=== PATIENT | female | born 1980 | race Caucasian/White ===

== ENCOUNTER → 2023-07-17 13:43 | Outpatient (REF) | payer BC, SELFPAY ==
[2023-07-17 15:45] LABS: Hematocrit 35.5 % (37.0-47.0); Hemoglobin 11.8 g/dL (12.0-16.0); Mean Corp Hgb Conc. 33.2 g/dL (33.0-37.0); Mean Corpuscular Hgb 28.3 pg (27.0-31.0); Mean Corpuscular Volume 85.1 fL (81.0-99.0); Mean Platelet Volume 11.8 fL (7.4-10.4); Platelet Count 279 10^3/uL (130-400); Red Blood Cell Count 4.17 10^6/uL (4.20-5.40); Red Cell Dist. Width 11.9 % (11.5-14.5); White Blood Cell Count 6.6 10^3/uL (4.8-10.8)
[2023-07-17 16:03] LABS: Iron 45 ug/dl (37-170)
[2023-07-17 16:14] LABS: Percent Saturation 11 % (20-50); Total Iron Binding Capacity 406 ug/dl (265-497)
== END ==
LOC: HWLAB 13:43
PROVIDERS: ATTENDING PHYSICIAN Internal Medicine Gastroenterology; FAMILY PHYSICIAN Family Medicine
DX: R19.7 Diarrhea, unspecified (principal); D50.0 Iron deficiency anemia secondary to blood loss (chronic); K50.012 Crohn's disease of small intestine with intestinal obstruction
CPT/HCPCS: 36415; 83540; 83550; 85027

== ENCOUNTER → 2023-07-21 06:28 | Day surgery (SDC) | payer BC, SELFPAY | LOC: GI 06:28 | PROVIDERS: ATTENDING PHYSICIAN Internal Medicine Gastroenterology | DX: K64.0 First degree hemorrhoids (principal); K63.89 Other specified diseases of intestine; K50.00 Crohn's disease of small intestine without complications; Z09 Encounter for follow-up examination after completed treatment for conditions other than malignant neoplasm | CPT/HCPCS: 45380; 88305 ==

== ENCOUNTER → 2023-08-13 13:51 | Outpatient (REF) | payer BC, SELFPAY | LOC: HWRAD 13:51 | PROVIDERS: ATTENDING PHYSICIAN Family Medicine | DX: R05.1 Acute cough (principal) | CPT/HCPCS: 71046 ==

== ENCOUNTER → 2023-09-10 10:50 | Outpatient (REF) | payer BC, SELFPAY ==
[2023-09-10 16:11] LABS: % Basophils 0.8 % (0-2); % Immature Granulocytes 0.2 % (0-0.5); % Lymphocytes 21.1 % (20.5-51.1); % Monocytes 9.8 % (1.7-9.3); % Neutrophils 67.1 % (42.2-75.2); Absolute Eosinophils 0.1 10^3/uL (0-0.7); Absolute Lymphocytes 1.1 10^3/uL (1.2-3.4); Absolute Monocytes 0.5 10^3/uL (0.1-0.6); Absolute Neutrophils 3.5 10^3/uL (1.4-6.5); Hematocrit 34.6 % (37.0-47.0); Hemoglobin 10.8 g/dL (12.0-16.0); Mean Corp Hgb Conc. 31.2 g/dL (33.0-37.0); Mean Corpuscular Hgb 24.7 pg (27.0-31.0); Mean Platelet Volume 12.7 fL (7.4-10.4); Nucleated Red Blood Cells % 0 %; Platelet Count 240 10^3/uL (130-400); Red Blood Cell Count 4.38 10^6/uL (4.20-5.40); Red Cell Dist. Width 13.1 % (11.5-14.5); White Blood Cell Count 5.2 10^3/uL (4.8-10.8)
[2023-09-10 16:53] LABS: Ferritin 19.4 ng/ml (6.24-137)
== END ==
LOC: HWLAB 10:50
PROVIDERS: ATTENDING PHYSICIAN Internal Medicine Gastroenterology; FAMILY PHYSICIAN Family Medicine
DX: K50.012 Crohn's disease of small intestine with intestinal obstruction (principal); D50.0 Iron deficiency anemia secondary to blood loss (chronic)
CPT/HCPCS: 36415; 82728; 85025

== ENCOUNTER → 2023-09-16 07:45 | Outpatient (REF) | payer BC, SELFPAY | LOC: MRI 3T 07:45 | PROVIDERS: ATTENDING PHYSICIAN Internal Medicine Gastroenterology; FAMILY PHYSICIAN Family Medicine | DX: K50.012 Crohn's disease of small intestine with intestinal obstruction (principal) | CPT/HCPCS: 72197; 74183; A9575 ==

== ENCOUNTER 2023-09-24 06:45 | Inpatient (IN) | payer BC, SELFPAY ==
[2023-09-23 21:53] VITALS: BP 166/98
[2023-09-23] MEDS: ZOFRAN ODT (ORALLY DISINTEGRATING) 4 MG PO (21:58)
[2023-09-23 22:12] LABS: % Basophils 0.5 % (0-2); % Eosinophils 1.2 % (0-6); % Immature Granulocytes 0.2 % (0-0.5); % Neutrophils 75.1 % (42.2-75.2); Absolute Eosinophils 0.1 10^3/uL (0-0.7); Absolute Lymphocytes 1.4 10^3/uL (1.2-3.4); Absolute Monocytes 0.5 10^3/uL (0.1-0.6); Absolute Neutrophils 6.3 10^3/uL (1.4-6.5); Hematocrit 31.6 % (37.0-47.0); Hemoglobin 10.3 g/dL (12.0-16.0); Mean Corp Hgb Conc. 32.6 g/dL (33.0-37.0); Mean Corpuscular Hgb 23.7 pg (27.0-31.0); Mean Corpuscular Volume 72.6 fL (81.0-99.0); Mean Platelet Volume 10.8 fL (7.4-10.4); Nucleated Red Blood Cells % 0 %; Platelet Count 336 10^3/uL (130-400); Red Blood Cell Count 4.35 10^6/uL (4.20-5.40); Red Cell Dist. Width 13.3 % (11.5-14.5); White Blood Cell Count 8.5 10^3/uL (4.8-10.8)
[2023-09-23 22:27] LABS: ALT (SGPT) 24 U/L (0-35); AST (SGOT) 33 U/L (14-36); Albumin 4.1 g/dl (3.5-5.0); Alkaline Phosphatase 82 U/L (38-126); Blood Urea Nitrogen 14 mg/dl (7-17); Calcium 8.5 mg/dl (8.4-10.2); Carbon Dioxide 20 mmol/L (22-30); Chloride 107 mmol/L (98-107); Glucose 99 mg/dl (70-99); Lipase 152 U/L (23-300); Potassium 3.4 mmol/L (3.5-5.1); Sodium 133 mmol/L (135-145); Total Bilirubin 0.4 mg/dl (0.2-1.3); Total Protein 6.9 g/dl (6.3-8.2); eGFR > 60.00
[2023-09-23 23:22] LABS: HCG, Serum Qualitative Screen Negative
--- NOTE | 2023-09-24 00:43 | ED.GENMED ---
History of Present Illness
General
Chief Complaint: Abdominal Pain
Source: patient and previous hospital records (Previous ED visit for similar complaint May 2023. Colonoscopy July 21, 2023. Showing uncomplicated internal hemorrhoids otherwise unremarkable.)
Exam Limitations: none
Time Seen by Provider: 09/24/23 00:01
Nursing documentation reviewed up to this point in time: agreed with
Travel History
Have you had any contact with someone who has COVID-19?: No
Do you have any symptoms of coronavirus? Fever > 100 degrees, chills, cough, shortness of breath, sore throat, loss of taste or smell, muscle aches, or headache?: No
History of Present Illness
History of Present Illness:
This is a 43-year-old woman with history of Crohn's disease chronically maintained on Humira and follows with GI, Dr. Palmer.
She also follows with specialist at [facility] and has undergone MR enteroscopy's showing focal small bowel stricture and has had intermittent flares of Crohn's disease with partial small bowel obstructions most recently May 2023 where
she was evaluated in this ED with very similar complaints of abdominal pain, nausea and vomiting. CT during that visit showed no obstruction nor perforation. She was treated with IV fluids, IV pain medications and antiemetics, IV Decadron and
discharged to home with prescription for prednisone which patient states required several refills/a slow taper with eventual resolution of Crohn's flare.
She has been stable until today when abrupt onset of generalized mid to upper abdominal pain, crampy and severe in nature developed accompanied with nausea and multiple episodes of watery to bilious emesis.
She denies fever nor chills. She did pass a small soft stool earlier today but none since. No hematemesis nor hematochezia.
Current symptoms feel very similar to previous Crohn's flares.
She was given Zofran ODT in triage, thus far no improvement in nausea and vomiting.
Patient states due to segment of stricture in her small bowel noted on MRE, there has been discussion regarding need for small bowel resection.
She has history of anemia and is scheduled for IV iron infusion tomorrow due to recurrent anemia with hemoglobin drifting down to 10.
Past History
Past History
ED Past Medical History: Other (Crohn's disease, B12 and Iron deficiency, migraines, anemia, kidney stones)
ED Past Surgical History: Appendectomy, Bowel resection (Right hemicolectomy at age 12) and Gynecological (D&C 05/2013)
Social History
Tobacco: Non-smoker
Alcohol: None
Personal:
Living: with family
Employment: Employed ([employer]/neu[employer])
Family History
Family History: Other (Noncontributory)
Phy Exam
Physical Exam
Physical Exam:
GENERAL: 43-year-old female appears her stated age, awake and alert, appears in moderate distress related to pain, intermittently retching into emesis bag. is accompanying.
EYE: anicteric
NECK: Supple, nontender, no meningismus, no significant adenopathy.
ENT: oral mucosa is mildly dry. No rhinorrhea.
CARDIAC: Regular rate and rhythm. no murmur.
LUNGS: Clear breath sounds bilaterally, no acute respiratory distress, no wheezes/rales/rhonchi
ABDOMEN: Soft, nondistended, moderate generalized tenderness to the mid to upper abdomen, no r/g, no cvat. Hypoactive bowel sounds.
NEUROLOGICAL: Alert and oriented x3, no focal neuro deficits.
SKIN: Warm and dry, normal color, skin intact. No rash.
MUSCULOSKELETAL: No C/C/E. peripheral pulses are full and equal b/l. No palpable tenderness.
PSYCH: Normal and appropriate interaction.
Course
Orders/Labs/Results
Orders:
Orders
09/23/23 21:57
Ondansetron Orally Disint [Zofran Odt (Orally Disintegrating)] 4 mg .ROUTE .STK-MED ONE
09/23/23 21:58
Ondansetron Orally Disint [Zofran Odt (Orally Disintegrating)] 4 mg PO NOW STA
09/23/23 22:02
Complete Blood Count/With Diff Urgent
Comprehensive Metabolic Panel Urgent
HCG, Serum Qualitative Screen Urgent
Comment: ADD ON
Lipase Urgent
09/23/23 22:54
Add On- LAB Urgent
Comments:: blood in lab
Tests Added?: serum hcg
09/24/23 00:11
0.9% Sodium Chloride 1000 ml [Nss] 1,000 ml IV BOLUS
Diphenhydramine [Benadryl] 25 mg IV NOW STA
HYDROmorphone [Dilaudid] 0.5 mg IV NOW STA
Iohexol [Omnipaque] See Protocol PO NOW STA
Prochlorperazine [Compazine] 10 mg IV NOW STA
09/24/23 00:12
CT Abd/pel W Iv And Oral Contr Urgent
Comment:
Reason For Exam: gen abd pain, N/V, hx crohn's, hx SBO
09/24/23 00:41
Lactic Acid Urgent
09/24/23 02:59
Ondansetron Injectable [Zofran] 4 mg .ROUTE .STK-MED ONE
09/24/23 03:00
Ondansetron Injectable [Zofran] 4 mg IV NOW STA
09/24/23 03:03
HYDROmorphone [Dilaudid] 0.5 mg IV NOW STA
Ondansetron Injectable [Zofran] 4 mg IV NOW STA
09/24/23 03:41
HYDROmorphone [Dilaudid] 0.25 mg .ROUTE .STK-MED ONE
09/24/23 03:43
HYDROmorphone [Dilaudid] 0.25 mg IV NOW STA
Abnormal Lab Results
09/23/23
22:02
Hgb 10.3 L g/dL
(12.0-16.0)
Hct 31.6 L %
(37.0-47.0)
MCV 72.6 L fL
(81.0-99.0)
MCH 23.7 L pg
(27.0-31.0)
MCHC 32.6 L g/dL
(33.0-37.0)
MPV 10.8 H fL
(7.4-10.4)
Lymphocytes % 17.0 L %
(20.5-51.1)
Sodium 133 L mmol/L
(135-145)
Potassium 3.4 L mmol/L
(3.5-5.1)
Carbon Dioxide 20 L mmol/L
(22-30)
09/23/23 22:02
09/23/23 22:02
Vital Signs
Initial and Last Documented VS:
Initial Vital Signs
Temp Pulse Resp BP Pulse Ox
98.2 F 112 16 166/98 99
09/23/23 21:53 09/23/23 21:53 09/23/23 21:53 09/23/23 21:53 09/23/23 21:53
Last Documented Vital Signs
Temp Pulse Resp BP Pulse Ox
98.2 F 67 16 115/72 98
09/23/23 21:53 09/24/23 05:00 09/24/23 05:00 09/24/23 05:00 09/24/23 05:00
MDM/Problems Addressed
Differential Diagnosis Includes:
Concern for Crohn's flare, concern for small bowel obstruction, small bowel perforation, ischemic bowel, dehydration, electrolyte abnormality, progression of anemia.
Will medicate for pain and nausea initiate IV fluids.
Labs thus far show normal white blood cell count, mild anemia with hemoglobin of 10.3, was 10.8 2 weeks ago.
Chemistries show mild hyponatremia, mild hypokalemia with mild metabolic acidosis likely related to fasting state, recurrent vomiting. Normal BUN and creatinine. Normal LFTs and lipase. hCG is negative.
Will check lactic acid.
Will plan for CT abdomen pelvis with oral and IV contrast.
Chronic conditions affecting care: Previous abdomnial surgery and Other (Crohn's disease, anemia)
*Radiology
Radiology exam reviewed: radiology read reviewed
*Pulse Oximetry
Patient hypoxic: no
*Critical Care Note
Total Time (30-74mins, 75-104mins- exclusive of procedures): Not Applicable
Update Note
Update Note:
09/24/2023 0528 AM
After several IV doses of pain medication and antiemetics patient feeling markedly improved but continues with intermittent mid abdominal pain along with intermittent nausea. She has only been able to to consume a quarter of a cup of oral contrast.
She remains afebrile. Initial hypertension and sinus tachycardia have resolved/normalized.
CAT scan shows prior ileocecectomy with ileocolic colic anastomosis. There is distal enteritis with some degree of stricturing resulting in partial small bowel obstruction with small bowel dilation up to 4.4 cm. No abscess nor free air. Bile
density stone in the neck of the gallbladder but no pericholecystic inflammation nor ductal dilatation. Patient's abdominal pain has been primarily mid abdomen, not right upper quadrant, not consistent with biliary colic in nature.
With continued intermittent pain, CAT scan concerning for partial small bowel obstruction, likely reflective of acute Crohn's flare patient will require acute hospitalization for continued pain management, continued IV fluid replacement, electrolyte
replacement.
Will give an IV dose of Decadron for Crohn's flare.
Will admit to hospitalist service.
ED Attending Note
-
Portions of this chart may have been created with voice recognition software.� Occasional wrong word or��sound alike� substitutions may have occurred due to the inherent limitations of voice recognition software.
Discharge Plan
Departure
Patient Disposition: Admit
Date of Disposition: 09/24/23
Time of Disposition: 05:31
Admit to doctor: Jones
Presentation/result/management discussed w/ accepting MD/DO: Hospitalist
Condition: Fair
Discharge Problem:
Exacerbation of Crohn's disease, Small bowel obstruction, partial, Acute hypokalemia, Iron deficiency anemia
Prescriptions:
No Action
ascorbic acid (vitamin C) [Vitamin C] 500 MG tablet
1,000 mg PO DAILY
cholecalciferol (vitamin D3) 1,000 UNITS tablet
1,000 units PO DAILY
calcium carbonate 500 mg calcium (1,250 mg) Tablet
500 mg PO DAILY
cyanocobalamin (vitamin B-12) 1,000 MCG tablet
1,000 mcg PO DAILY
prochlorperazine maleate [Compazine] 5 mg tablet
5 mg PO TID PRN (Reason: nausea) Qty: 10 0RF
bupropion HCl [Wellbutrin SR] 150 mg Tablet Sustained-Release 12 Hr
150 mg PO DAILY
Humira(CF) 40 mg/0.4 mL Syringe Kit
40 mg SC .[id number]
Rx Instructions:
TUESDAYS
ondansetron 8 mg tablet,disintegrating
8 mg PO TID PRN (Reason: nausea and vomiting) Qty: 60 2RF
prednisone 20 mg tablet
20 mg PO BID Qty: 14 0RF
Referrals:
Yaima Ziegler MD [Family Provider] -
Interventions
Interventions:
*Risk Screen - Suicide Last Done: 09/23/23 21:53
*General Assessment Last Done: 09/23/23 21:53
*Neglect/Abuse Screening Last Done: 09/23/23 21:53
*ED COVID-19 Vaccine History Last Done: 09/23/23 21:53
CN-Fgffdr-Uvetjsztii Assessment Last Done: 09/24/23 00:59
Discharge Date and Time
Print Language: OCCITAN
[2023-09-24] MEDS: BENADRYL 25 MG IV (00:49)
[2023-09-24] MEDS: DILAUDID 0.5 MG IV ×2 (00:49→23:03)
[2023-09-24] MEDS: NSS 1000 IV (00:49)
[2023-09-24] MEDS: COMPAZINE 10 MG IV (00:49)
[2023-09-24] MEDS: OMNIPAQUE 960 ML PO (00:50)
[2023-09-24 00:58] VITALS: BMI 22.3
[2023-09-24 01:11] LABS: Lactic Acid 0.8 mmol/L (0.7-2.0)
[2023-09-24 03:00] VITALS: BP 127/91
[2023-09-24] MEDS: ZOFRAN 4 MG IV (03:01)
[2023-09-24] MEDS: DILAUDID 0.25 MG IV (03:44)
[2023-09-24 05:00] VITALS: BP 115/72
[2023-09-24] MEDS: DECADRON 10 MG IV (05:46)
[2023-09-24] MEDS: NSS with KCL 40 MEQ 1000 IV (05:47)
--- NOTE | 2023-09-24 06:35 | HPS.HSE ---
Family Physician
-
Family Physician: Yaima Ziegler
Chief Complaint
-
Abd Pain, N/V
History of Present Illness
Patient is a 43y F with PMH significant for Crohn's disease who presents to ED complaining of abdominal pain and N/V. Patient states that she had some heartburn symptoms early this morning. She felt otherwise fairly well throughout the day
until later this evening when she developed abrupt onset of epigastric abdominal pain. She had nausea with multiple episodes of projectile, bilious, non-bloody emesis. Patient presented to the ED for further valuation and treatment. She is
feeling somewhat improved since administration of medications for pain / nausea.
Patient reports prior history of similar episodes relating to Crohn's flares and resultant partial SBO.
Patient states that there is a specific segment of bowel with chronic stricture that they believe is the culprit lesion. Potential surgical excision has been discussed.
Medical History
Past Medical History
Past Medical History: Reports Other
Additional Past Medical History:
Crohn's Disease (10 yo)
Depression
Past Surgical History: Reports Other
Additional Past Surgical History:
Ileocolonic Bowel Resection / Appendectomy (12 yo)
Uterine Ablation
Social History
Tobacco: Non-smoker
Alcohol: Occasional (Very rare)
Drug: Other (Medicinal marijuana use occasionally.)
Family History
Family History: Other (Father: CAD, CVA, DM Mother: HTN Sister: Thyroid Cancer)
Allergies / Home Medications
Allergies reflects when Allergies were last updated in [facility].
Home Medications with original date entered in [facility]
Allergy/Medication List:
Allergies
Allergy/AdvReac Type Severity Reaction Status Date / Time
ferric carboxymaltose Allergy SYNCOPE Verified 05/24/23 18:54
[From Injectafer]
Home Medications
ascorbic acid (vitamin C) 500 mg tablet (Vitamin C) 1,000 mg PO DAILY Supplement 05/17/21
cholecalciferol (vitamin D3) 25 mcg (1,000 unit) tablet 1,000 units PO DAILY Supplement 05/17/21
cyanocobalamin (vitamin B-12) 1,000 mcg tablet 1,000 mcg PO DAILY Supplement 06/10/22
adalimumab 40 mg/0.4 mL subcutaneous syringe kit (Humira(CF)) 40 mg SC .[id number] 02/06/23
bupropion HCl 150 mg tablet,12 hr sustained-release (Wellbutrin SR) 150 mg PO DAILY 02/06/23
Review of Systems
-
History Source: Patient
A 12 point ROS was completed and negative except as noted: Yes
Constitutional: Denies Fever or Chills
Respiratory: Denies Cough or Trouble Breathing
Cardiac: Denies Chest Pain or Palpitations
Abdomen/GI: Reports Abdominal Pain, Nausea and Vomiting
Musculoskeletal: Denies Joint Pain or Edema
Neurological: Denies Dizzy or Headache
Physical Exam
Vital Signs
Vital Signs
Temp Pulse Resp BP Pulse Ox
98.2 F 67 16 115/72 98
09/23/23 21:53 09/24/23 05:00 09/24/23 05:00 09/24/23 05:00 09/24/23 05:00
Physical Exam
General: Other (43y F in no acute distress.)
HEENT: Moist mucous membranes and PERRLA
Respiratory: Clear; No Wheezes, Rales or Rhonchi
Cardiac: S1/S2 and Regular Rhythm; No Murmur
GI: Other (Abdomen is soft, mildly distended. Pos tenderness L abdomen without guarding / rebound. Bowel sounds are appreciated.)
Musculoskeletal: No Clubbing, No Cyanosis and No Edema
Neuro: AO x 3
Laboratory Results
-
09/23/23 22:02
09/23/23 22:02
Laboratory Results
Lactic Acid 0.8 mmol/L (0.7-2.0) 09/24/23 00:41
Total Bilirubin 0.4 mg/dl (0.2-1.3) 09/23/23 22:02
AST 33 U/L (14-36) 09/23/23 22:02
ALT 24 U/L (0-35) 09/23/23 22:02
Alkaline Phosphatase 82 U/L (38-126) 09/23/23 22:02
Lipase 152 U/L (23-300) 09/23/23 22:02
Impression/Plan
-
A/P: Patient is a 43y F with PMH significant for Crohn's Disease who presents to ED complaining of abdominal pain with N/V.
Crohn's Disease with Acute Flare
Partial SBO secondary to the above
- Admit for further evaluation and treatment.
- Continue IV steroids for Crohn's flare.
- Supportive care including NPO, IVFs, pain and nausea control.
- GI evaluation for additional recommendations.
- Follow for clinical improvement.
Iron Deficiency Anemia
- Stable. Microcytosis with Hgb around 10 g/dL.
- Patient receives occasional iron infusions as needed.
- Monitor for changes in H&H.
- Consider transfusion / iron supplementation as needed.
DVT Prophylaxis: SCDs
Code Status: Full
--- NOTE | 2023-09-24 07:33 | CON.GI ---
Addendum entered and electronically signed by Crystal Oliver DO 09/24/23 14:31:
Patient seen and examined independently of BEATRIZ. I agree with her note with my additions below
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 She is here with clinical symptoms of a bowel obstruction. She is
currently on Humira every 2 weeks. She has been on Humira since from the fall 2022. She had a recent MR enterography on 09/16/2023 because roughly once a month she will have intermittent obstruction like symptoms. They generally resolve with clear
liquid diet and bowel rest.
Reviewed imaging including
---MR enterography from 09/16/2023 which does show some mild probable chronic inflammatory changes involving the ileum with mucosal hyperenhancement and bowel wall thickening. Roughly a 15 cm segment of mild distal small bowel stricturing that is
grossly stable with node bowel dilation. No fistulizing bowel.
--- CT scan from today 09/24/23 shows mildly thickened several loops of distal small bowel measuring up to 3.4 cm with mild thickening and inflammatory changes. Normal-appearing colon. Anastomosis in the right lower quadrant.
Inflammatory markers are normal including CRP and ESR. No leukocytosis. Patient has chronic iron deficiency anemia. Vital signs are stable.
This specific flare started yesterday. She was in a good normal state of health then started to feel reflux-like symptoms then violently vomited. In the emergency room she had the CT scan labs done. She was given Decadron 10 mg, pain medication,
antiemetics and IV fluids with bowel rest. Currently she has some tenderness to palpation. She is no longer nauseated and no more vomiting. She urinated and did pass some small amount of flatus.
Plan:
-- IV fluids, IV steroids, once daily PPI
-- Bowel rest, sips of clears
-- We had a long conversation about future. She is well-known to Dr. Palmer and Dr. Tafoya at [facility]. Likely plan is surgical resection of the diseased area since it is likely more fibrotic in nature with some mild inflammatory component.
Addendum entered and electronically signed by BEATRIZ Camacho 09/24/23 09:31:
reviewed with patient she has had Ferrlecit without difficulty in past will order.
Original Note:
Consultation
-
Date/Time Consultation Requested: 09/24/23 0700
Date/Time Consultation Performed: 09/24/2330
Requesting Provider: Chris Goldman DO
Performing Provider: BEATRIZ [place], Crystal Oliver DO
Reason for Consultation: abdominal pain, nausea, vomiting
Medical History
Chief Complaint / HPI
Chief Complaint: nausea/vomiting, abdominal pain and diarrhea
History of Present Illness:
41 y/o female with hx SBO, possible celiac with recent + HLA Dq 2 positive testing, B12 deficiency, migraines, menorrhagia, anemia, kidney stones and morphea scleroderma, and longstanding Crohn's disease dx age 10 with ileocolonic resection at
age 12. She was on steroids and mesalamine years ago then off medical therapy for many years. She started Stelara about 2-3 years ago and then transitioned to current Humira therapy. She has also requires steroids as recent as last fall. She
was followed by Dr. Solis but currently following with Dr. Palmer and had second opinion evaluation with Dr. Bentley at [facility] earlier this year as concern for underlying fibrotic stricturing disease vs inflammatory stricture at anastomosis
site. She now presents with recurrent episode of abdominal pain with nausea and vomiting. In reviewing with patient she will have mini episode about 1 time per month with mild GERD, abdominal pain improved with rest and decreased diet. She
requires admission or ER eval about every 6 months to year. On admission labs with mild anemia with hbg 10.3, and MCV 72.6, Na 133, K 3.[address] on admission concern for Bowel wall thickening of a distal small bowel loop within the lower midline
abdomen/pelvis, associated with mild distal small bowel obstruction. Fecalization of small bowel contents proximal to the inflamed segment of distal small bowel. Findings are likely related to Crohn's flare. No pneumatosis intestinalis or
extraluminal air. Also noted Cholelithiasis without evidence of acute cholecystitis, Uterine fibroids and Left ovarian cyst. Recent MRE 09/15 with evidence of mild probable chronic inflammatory changes involving the distal ileum, grossly stable
from prior MRI 12/05/2022.
Pt currently states she began 09/22 with prodrome of symptoms with increased GERD, epigastric pain then progressed to worsening abdominal pain with vomiting large volumes last PM. Symptoms have now improved with meds but no stools and has not
eaten. Pain was left mid and lower abdominal which is typical for her flares. She also admits to periodic diarrhea with bout over weekend. She admits to worsening symptoms with gluten with concern for underlying celiac. She had no stools Thursday
and small stool and none today. Pt denies dysphagia, odynophagia, hematemesis, blood or black in stools.
Past Medical History
Past Medical History: Other (Crohn's, SBO, B12 def, Migraines, menorrhagia, anemia with iron deficiency, kidney stones, morphea scleroderma, celiac with + HLA Dq 2 testing)
Past Surgical History: Appendectomy, Bowel Resection (ileocolonic), Gynecological (uterine ablation) and Other (D&C, uterine ablation)
Social History
Tobacco: Non-Smoker
Alcohol: None (rare social)
Drug: Marijuana (gummies or vape)
Personal:
Living: With Family
Employment: Employed
Family History
Family History: Other (Father ( 69) MO/CVA/ESRD, Sister thryroid disease, No fam hx of gastrointestinal malignancies or IBD)
Allergies / Home Medications
Allergy/AdvReac Type Severity Reaction Status Date / Time
ferric carboxymaltose Allergy SYNCOPE Verified 05/24/23 18:54
[From Injectafer]
�Medication �Instructions �Recorded
ascorbic acid (vitamin C) 500 mg 1,000 mg PO DAILY Supplement 05/17/21
tablet (Vitamin C)
cholecalciferol (vitamin D3) 25 1,000 units PO DAILY Supplement 05/17/21
mcg (1,000 unit) tablet
cyanocobalamin (vitamin B-12) 1,000 mcg PO DAILY Supplement 06/10/22
1,000 mcg tablet
adalimumab 40 mg/0.4 mL 40 mg SC .[id number] 02/06/23
subcutaneous syringe kit
(Humira(CF))
bupropion HCl 150 mg tablet,12 hr 150 mg PO DAILY 02/06/23
sustained-release (Wellbutrin SR)
Review of Systems
-
History Source: Patient
Constitutional: Reports No Symptoms
EENT: Reports No Symptoms
Respiratory: Reports No Symptoms
Cardiac: Reports No Symptoms
Abdomen/GI: Reports Abdominal Pain, Nausea, Vomiting, Diarrhea and Constipated
: Reports No Symptoms
Musculoskeletal: Reports No Symptoms
Skin: Reports No Symptoms
Neurological: Reports Weakness
Endocrine: Reports No Symptoms
Hematologic/Lymphatic: Reports No Symptoms
Vital Signs
Temp Pulse Resp BP Pulse Ox
98.2 F 67 16 115/72 98
09/23/23 21:53 09/24/23 05:00 09/24/23 05:00 09/24/23 05:00 09/24/23 05:00
Physical Exam
Exam
General: Well Developed, Well Nourished and No Apparent Distress
HEENT: Normocephalic, Anicteric and Moist Mucous Membranes
Respiratory: Clear
Cardiac: Regular Rhythm
GI: Soft, Tender (mild left sided and mid low abdomen ) and Distended (mild )
Genito-urinary: No Costovertebral Tender
Musculoskeletal: No Clubbing and No Cyanosis
Skin: Warm and Dry
Neuro: Awake, Alert and AO x 3
Psych: Calm
Results
WBC 8.5 10^3/uL (4.8-10.8) 09/23/23 22:02
Hgb 10.3 g/dL (12.0-16.0) L 09/23/23:
Hct 31.6 % (37.0-47.0) L 09/23/23:
MCV 72.6 fL (81.0-99.0) L 09/23/23:
Plt Count 336 10^3/uL (130-400) 09/23/23:
Absolute Neuts (auto) 6.3 10^3/uL (1.4-6.5) 09/23/23:
Sodium 133 mmol/L (135-145) L 09/23/23:
Potassium 3.4 mmol/L (3.5-5.1) L 09/23/23:
Chloride 107 mmol/L (98-107) 09/23/23:
Carbon Dioxide 20 mmol/L (22-30) L 09/23/23:
BUN 14 mg/dl (7-17) 09/23/23:
Creatinine 0.8 mg/dL (0.6-1.0) 09/23/23:
Calcium 8.5 mg/dl (8.4-10.2) 09/23/23:
Total Bilirubin 0.4 mg/dl (0.2-1.3) 09/23/23:
AST 33 U/L (14-36) 09/23/23:
ALT 24 U/L (0-35) 09/23/23:
Alkaline Phosphatase 82 U/L (38-126) 09/23/23 22:
Lipase 152 U/L (23-300) 09/23/23 22:
Diagnostic Image Results:
09/23 CT a/p
1. Bowel wall thickening of a distal small bowel loop within the lower midline abdomen/pelvis, associated with mild distal small bowel obstruction. Fecalization of small bowel contents proximal to the inflamed segment of distal small bowel. Findings
are likely related to Crohn's flare. No pneumatosis intestinalis or extraluminal air.
2. Cholelithiasis without evidence of acute cholecystitis.
3. Uterine fibroids. Left ovarian cyst.
09/15 MRE
There is evidence of mild probable chronic inflammatory changes involving the distal ileum, grossly stable from prior MRI 12/05/2022.
Prior GI Procedures:
Colonoscopy: 07/2023 [place] - The examined portion of the ileum was normal.
Biopsied.
- The entire examined colon is normal. Biopsied.
- Internal hemorrhoids.
- Anal papilla(e) were hypertrophied.
bx with neg active inflammation
Assessment / Plan
-
41 y/o female with hx SBO, celiac with recent + HLA Dq 2 positive testing, B12 deficiency, migraines, menorrhagia, anemia, kidney stones and morphea scleroderma, and longstanding Crohn's disease dx age 10 with ileocolonic resection at age 12.
She was on steroids and mesalamine years ago then off medical therapy for many years. She started Stelara about 2-3 years ago and then transitioned to current Humira therapy. She has also requires steroids as recent as last fall. She was
followed by Dr. Solis but currently following with Dr. Palmer and had second opinion evaluation with Dr. Bentley at [facility] earlier this year as concern for underlying fibrotic stricturing disease vs inflammatory stricture at anastomosis
site. She now presents with recurrent episode of abdominal pain with nausea and vomiting. In reviewing with patient she will have mini episode about 1 time per month with mild GERD, abdominal pain improved with rest and decreased diet. She
requires admission or ER eval about every 6 months to year. On admission labs with mild anemia with hbg 10.3, and MCV 72.6, Na 133, K 3.[address] on admission concern for Bowel wall thickening of a distal small bowel loop within the lower midline
abdomen/pelvis, associated with mild distal small bowel obstruction. Fetalization of small bowel contents proximal to the inflamed segment of distal small bowel. Findings are likely related to Crohn's flare. No pneumatosis intestinalis or
extraluminal air. Also noted Cholelithiasis without evidence of acute cholecystitis, Uterine fibroids and Left ovarian cyst. Recent MRE 09/15 with evidence of mild probable chronic inflammatory changes involving the distal ileum, grossly stable
from prior MRI 12/05/2022.
-abdominal pain with nausea/vomiting and concern for mild distal small bowel obstruction with fetalization of Small bowel
-crohn's disease with prior ileocolic resection at age 12 current humira therapy
-noted chronic inflammatory changes distal ileum
-likely celiac disease with recent HLADQ2 + testing
-chronic anemia due OP IV iron
-b12 deficiency
other med problems:
-migraines
-hx menorrhagia
-renal stones
-morphea scleroderma
PLAN:
concern for current crohns flare with know chronic changes in distal ileum and obstructive process
pt was recently reviewed with Dr. Palmer and Dr. Bentley with concern for inflammation and underlying fibrotic stricture with possible need for surgical resection
currently some improvement from last PM with no further vomiting
steroids started in ER on Solumedrol 60mg daily
cont pain control and antiemetics
will review with Dr. Oliver need for surgical evaluation-- if eventual surgical resection required would be here with current DH insurance
NPO
monitor for recurrent vomiting and need for NGT
when diet advance will need low residue/gluten free diet
ESR pending add CRP
OP IV iron-- hx injectofer reaction and cross allergy with Ferrlecit
Pt is scheduled 10/07 [address] Palmer
-
-
Thank you for consultation and allowing me to participate in the patient's care. Please call the wig sales consultant GI physician during the after hours with any questions or concerns.
[2023-09-24 08:30] LABS: C-Reactive Protein < 5.00 mg/L (0.0-10.00)
[2023-09-24 09:10] LABS: Ferritin 18.1 ng/ml (6.24-137)
[2023-09-24] MEDS: WELLBUTRIN SR (12 hour sustained release) 150 MG PO (09:44)
[2023-09-24 09:50] VITALS: BP 110/71
--- NOTE | 2023-09-24 10:59 | W.PN.HOSP.TC ---
Today's Communication/Plan
-
cont NPO/IVF
follow labs
Assessment / Plan
Assessment / Plan
pt is a 43 year old female
Crohn's Disease with Acute Flare with Partial SBO-- apprec GI--pt stopped vomiting--cont NPO/IVF--cont steroids
Iron Deficiency Anemia likely due to IBD--iron as per GI
DVT Prophylaxis: SCDs
Code Status: Full
Anticipated Discharge: 24 - 48 hours
Subjective/Interval History
-
Date of Service: September 24, 2023
pt pain improving, no longer vomiting--passed a little gas
Objective Data
-
Vital Signs:
max temp for 24 hours
09/23/23
21:53
Temp 98.2 F
Vital Signs
Temp Pulse Resp BP Pulse Ox
97.9 F 64 18 110/71 99
09/24/23 09:50 09/24/23 09:50 09/24/23 09:50 09/24/23 09:50 09/24/23 09:50
Review of Systems
-
All other systems: Reviewed and negative
Physical Exam
-
General: Well Developed, Well Nourished and No Apparent Distress
HEENT: Normocephalic and Atraumatic
Respiratory: Clear to Auscultation; Negative Wheezes or Rhonchi
Cardiac: Regular Rhythm and S1/S2; Negative Murmur
GI: Soft, Nontender, Nondistended and Normal Bowel Sounds
Musculoskeletal: No Clubbing, No Cyanosis and No Edema
Skin: Warm
Neuro: Awake
[2023-09-24 11:19] LABS: Erythrocyte Sed Rate 20 mm/hour (0-20)
[2023-09-24] MEDS: LR 1000 IV ×3 (12:34→23:11)
--- NOTE | 2023-09-24 14:31 | W.PN.UPDATE ---
Update Note
Progress Note Update
For billing purposes only
[2023-09-24] MEDS: FERRLECIT 110 MG IV (15:03)
[2023-09-24 16:30] VITALS: BP 112/77
[2023-09-24] MEDS: NSS (PRESERVATIVE FREE) 10 ML IV (16:43)
[2023-09-24] MEDS: SOLU-MEDROL PF 20 MG IV ×2 (16:43→23:02)
[2023-09-24] MEDS: PROTONIX IV 40 MG IV (16:43)
[2023-09-24 22:58] VITALS: BP 124/62
[2023-09-25 05:06] LABS: Hematocrit 28.2 % (37.0-47.0); Hemoglobin 8.8 g/dL (12.0-16.0); Mean Corp Hgb Conc. 31.2 g/dL (33.0-37.0); Mean Corpuscular Hgb 23.7 pg (27.0-31.0); Mean Corpuscular Volume 75.8 fL (81.0-99.0); Mean Platelet Volume 11.6 fL (7.4-10.4); Platelet Count 291 10^3/uL (130-400); Red Blood Cell Count 3.72 10^6/uL (4.20-5.40); Red Cell Dist. Width 13.4 % (11.5-14.5)
[2023-09-25 05:41] LABS: Blood Urea Nitrogen 10 mg/dl (7-17); Calcium 8.4 mg/dl (8.4-10.2); Carbon Dioxide 21 mmol/L (22-30); Chloride 105 mmol/L (98-107); Estimated Creatinine Clearance 84 ml/min; Glucose 118 mg/dl (70-99); Potassium 4.4 mmol/L (3.5-5.1); Sodium 133 mmol/L (135-145); eGFR > 60.00
[2023-09-25] MEDS: NSS (PRESERVATIVE FREE) 10 ML IV (07:53)
[2023-09-25] MEDS: SOLU-MEDROL PF 20 MG IV (07:53)
[2023-09-25] MEDS: PROTONIX IV 40 MG IV (07:53)
[2023-09-25] MEDS: WELLBUTRIN SR (12 hour sustained release) 150 MG PO (07:53)
[2023-09-25 07:59] VITALS: BP 124/70
--- NOTE | 2023-09-25 08:21 | W.PN.GI.CBS2 ---
Addendum entered and electronically signed by Mahogany Hill Do, MD 09/25/23 09:52:
I saw and examined the patient.
The MANAGER [facility]ITAL[facility]'s note was reviewed and I agree with the note.
Comment: Passing flatus. Pain improved. Still no BM yet. Ordered full liquid diet today. Exam NTTP, hypoactive BS. Walking. Labs reviewed
Impression
- pSBO
- Crohn's with fibrotic changes and small bowel stricture
Recommendations
- Adv to [facility] for lunch. If tolerates ok for hosp d/c upon pt's request
- Should be d/familia on slow pred taper 60mg daily x7 days, 50mg daily x7days then 40mg daily x7d, 30mg daily x7d, 20mg daily x7d then 10mg daily x7day. Calcium and vit D supplementation
- Resume humira injection at home
- To see surgery OP basis
- OOB ambulation
She already has OP FU with Dr Palmer scheduled 10/07 at noon already in her d/c paperwork
GI will sign off please call with questions
Original Note:
Today's Communication / Plan
-
concern for current crohns flare with know chronic changes in distal ileum and obstructive process
pt was recently reviewed with Dr. Palmer and Dr. Bentley with concern for inflammation and underlying fibrotic stricture with possible need for surgical resection
feeling improved this am and advancing diet full breakfast then low residue lunch with gluten free
remains on Solumedrol 20mg Q 8 hours -- would start at 60mg daily with taper by 10ml weekly if tolerating diet
cont PPI with steroid use
resume Humira on discharge has been on since 2022
t/c OP surgical evaluation -- if needed will need to be DH with current insurance plan through [employer]
ESR 20, CRP<5
s/p Ferrlecit yesterday for further OP IV iron
add calcium and vitamin D with recent steroid course and now restart
Pt is scheduled 10/07 [address] Palmer
Assessment / Plan
-
41 y/o female with hx SBO, celiac with recent + HLA Dq 2 positive testing, B12 deficiency, migraines, menorrhagia, anemia, kidney stones and morphea scleroderma, and longstanding Crohn's disease dx age 10 with ileocolonic resection at age 12.
She was on steroids and mesalamine years ago then off medical therapy for many years. She started Stelara about 2-3 years ago and then transitioned to current Humira therapy. She has also requires steroids as recent as last fall. She was
followed by Dr. Solis but currently following with Dr. Palmer and had second opinion evaluation with Dr. Bentley at [facility] earlier this year as concern for underlying fibrotic stricturing disease vs inflammatory stricture at anastomosis
site. She now presents with recurrent episode of abdominal pain with nausea and vomiting. In reviewing with patient she will have mini episode about 1 time per month with mild GERD, abdominal pain improved with rest and decreased diet. She
requires admission or ER eval about every 6 months to year. On admission labs with mild anemia with hbg 10.3, and MCV 72.6, Na 133, K 3.[address] on admission concern for Bowel wall thickening of a distal small bowel loop within the lower midline
abdomen/pelvis, associated with mild distal small bowel obstruction. Fetalization of small bowel contents proximal to the inflamed segment of distal small bowel. Findings are likely related to Crohn's flare. No pneumatosis intestinalis or
extraluminal air. Also noted Cholelithiasis without evidence of acute cholecystitis, Uterine fibroids and Left ovarian cyst. Recent MRE 09/15 with evidence of mild probable chronic inflammatory changes involving the distal ileum, grossly stable
from prior MRI 12/05/2022.
-abdominal pain with nausea/vomiting and concern for mild distal small bowel obstruction with fetalization of Small bowel
-crohn's disease with prior ileocolic resection at age 12 current humira therapy
-noted chronic inflammatory changes distal ileum
-likely celiac disease with recent HLADQ2 + testing
-chronic anemia due OP IV iron
-b12 deficiency
other med problems:
-migraines
-hx menorrhagia
-renal stones
-morphea scleroderma
PLAN:
concern for current crohns flare with know chronic changes in distal ileum and obstructive process
pt was recently reviewed with Dr. Palmer and Dr. Bentley with concern for inflammation and underlying fibrotic stricture with possible need for surgical resection
feeling improved this am and advancing diet full breakfast then low residue lunch with gluten free
remains on Solumedrol 20mg Q 8 hours -- would start at 60mg daily with taper by 10ml weekly if tolerating diet
cont PPI with steroid use
resume Humira on discharge has been on since 2022
t/c OP surgical evaluation -- if needed will need to be DH with current insurance plan through [employer]
ESR 20, CRP<5
s/p Ferrlecit yesterday for further OP IV iron
add calcium and vitamin D with recent steroid course and now restart
Pt is scheduled 10/07 [address] Palmer
Subjective
Subjective
Date of Service: September 25, 2023
no vomiting, feeling better passing flutus
Objective
Data Reviewed
Laboratory Data:
Laboratory Results
09/25/23 04:35
09/25/23 04:35
Laboratory Results
Magnesium 2.0 mg/dl (1.6-2.3) 09/25/23 04:35
Total Bilirubin 0.4 mg/dl (0.2-1.3) 09/23/23 22:02
AST 33 U/L (14-36) 09/23/23 22:02
ALT 24 U/L (0-35) 09/23/23 22:02
Alkaline Phosphatase 82 U/L (38-126) 09/23/23 22:02
Lipase 152 U/L (23-300) 09/23/23 22:02
Vital Signs and I&O:
Vital Signs
Temp Pulse Resp BP Pulse Ox
97.7 F 68 16 124/62 98
09/24/23 22:58 09/24/23 22:58 09/24/23 22:58 09/24/23 22:58 09/24/23 22:58
I&O
09/24/23 09/25/23 09/26/23
06:59 06:59 06:59
Intake Total 1320 / 1320
Balance 1320 / 1320
Physical Exam
Physical Exam
HEENT: Anicteric and Moist mucous membranes
Cardiology: Normal Sinus Rhythm
Pulmonary: Clear
GI: Soft, Distended (minimal improved from yesterday ) and Non Tender
Extremities: No Edema
Neuro: Non Focal
--- NOTE | 2023-09-25 08:23 | W.PN.HOSP.TC ---
Today's Communication/Plan
-
Discharge after lunch if tolerating low residue diet
Assessment / Plan
Assessment / Plan
pt is a 43 year old female
Crohn's Disease with Acute Flare with Partial SBO-- apprec GI--vomiting resolved, she is much improved on IV steroids. Advance to low residue diet as per GI. Patient requesting to go home, okay for discharge on slow prednisone taper as per GI if
tolerating lunch. Follow-up with her usual GI doctor in the office, general surgery as needed, and her primary care doctor in 1 week.
Iron Deficiency Anemia likely due to IBD--IV iron as per GI
DVT Prophylaxis: SCDs
Code Status: Full
Physical Exam
General: No acute distress
HEENT: Normocephalic, Atraumatic, EOMI, MMM
Respiratory: Clear to Auscultation bilaterally
Cardiac: Normal S1/S2, Regular Rate and Rhythm
GI: Soft, Nontender, Nondistended, Normal Bowel Sounds
Extremities: No Clubbing, Cyanosis, or Edema
Neuro: Nonfocal/Grossly Intact
Psych: Calm, Cooperative
Derm: No Visible lesions
Anticipated Discharge: Today
Subjective/Interval History
-
Date of Service: September 25, 2023
Patient reports feeling much better. She passed gas. Nausea and vomiting resolved. Her abdomen is less distended. She is asking to go home if she tolerates solids.
Objective Data
-
Labs:
Laboratory Results
09/25/23
04:35
WBC 8.0
Hgb 8.8 L
Hct 28.2 L
Plt Count 291
Sodium 133 L
Potassium 4.4 D
Chloride 105
Carbon Dioxide 21 L
BUN 10
Creatinine 0.7
Glucose 118 H
Calcium 8.4
Vital Signs:
Vital Signs
Temp Pulse Resp BP Pulse Ox
97.7 F 68 16 124/62 98
09/24/23 22:58 09/24/23 22:58 09/24/23 22:58 09/24/23 22:58 09/24/23 22:58
I&O
09/24/23 09/25/23 09/26/23
06:59 06:59 06:59
Intake Total 1320 / 1320
Balance 1320 / 1320
--- NOTE | 2023-09-25 09:56 | W.PN.UPDATE ---
Update Note
Progress Note Update
Note for billing purposes
--- NOTE | 2023-09-25 12:34 | W.DCSUMMARY ---
Discharge Summary
Discharge Data
Date of Admission: 09/24/23
Date of Discharge: 09/25/23
-
Pending Results: No
Hospital Course
Discharge diagnoses:
Partial small bowel obstruction
Flare of crohn's disease with fibrotic changes and small bowel stricture
Iron deficiency anemia
Anxiety/depression
Consults: GI
CT abd/pelvis:
1. Bowel wall thickening of a distal small bowel loop within the lower midline abdomen/pelvis, associated with mild distal small bowel obstruction. Fecalization of small bowel contents proximal to the inflamed segment of distal small bowel. Findings
are likely related to Crohn's flare. No pneumatosis intestinalis or extraluminal air.
2. Cholelithiasis without evidence of acute cholecystitis.
3. Uterine fibroids. Left ovarian cyst.
Hospital course:
43-year-old female with a past medical history of anxiety, depression, and Crohn's disease on Humira was admitted for a partial small bowel obstruction secondary to Crohn's disease flare. Patient presented to the hospital with nausea, vomiting, and
abdominal pain. CT of the abdomen and pelvis results noted as above.
Patient was seen in conjunction with GI. She was treated with IV steroids, n.p.o., antiemetics, IV fluids.
Patient also has iron deficiency anemia, and was given IV iron while in the hospital.
After several days, she felt remarkably better. Her abdominal distention improved, her vomiting resolved. She passed gas. She tolerated a low residue diet. She requested to be discharged. She will be discharged on a slow prednisone taper. She
already has an appointment to see her usual GI doctor in the office on 10/08/2023. She has been referred to general surgery as needed. She also needs to follow-up with her primary care doctor in 1 week.
Disposition: Home self-care
Discharge planning: Required 35 minutes
Discharge Plan
-
Patient Disposition: Home (Routine Discharge)
Discharge Diagnosis/Procedures: Partial small bowel obstruction, Crohn's disease with fibrotic changes and small bowel stricture
Condition: Fair
Diet: Low Residue
Activity: As tolerated
Driving Restrictions: As prior to admission
Activity Restrictions/Additional Instructions:
Follow-up with Dr. Palmer as sched.
See general surgery outpatient as needed.
Follow-up with your primary care doctor in 1 week as well.
Referrals:
Yaima Ziegler MD [Family Provider] - in one week
Catrachito Bridges MD [Active] - in four to six weeks
Vanessa Palmer MD [Active] - 10/08/23 12:00 pm (follow up with Dr. Palmer as planned )
Prescriptions:
New
prednisone 10 mg Tablet
See Rx Instructions .ROUTE .COMPLEX Qty: 150 0RF
Rx Instructions:
Take By Mouth:
60mg daily x1 wk,
50mg daily x1 wk,
40mg daily x1 wk,
30mg daily x1 wk,
20mg daily x1 wk,
10mg daily x1 wk
ondansetron 4 mg tablet,disintegrating
4 mg PO Q6H PRN (Reason: nausea and vomiting) Qty: 30 0RF
Continued
ascorbic acid (vitamin C) [Vitamin C] 500 MG tablet
1,000 mg PO DAILY
cholecalciferol (vitamin D3) 1,000 UNITS tablet
1,000 units PO DAILY
cyanocobalamin (vitamin B-12) 1,000 MCG tablet
1,000 mcg PO DAILY
Humira(CF) 40 mg/0.4 mL Syringe Kit
40 mg SC Q2W
Rx Instructions:
TUESDAYS
bupropion HCl [Wellbutrin XL] 150 mg Tablet Extended Release 24 Hr
150 mg PO DAILY
Discharge Orders:
Discharge Patient (As Directed); Ordered 09/25/23
Ordered By: Brian Owen
Discharge Date and Time
Discharge Date/Time: 09/25/23 13:30
Print Language: TELUGU
[2023-09-25 13:22] VITALS: BP 147/79
--- NOTE | 2023-09-25 14:24 | CM ---
Initial assessment completed with patient who lives with her and 14 y/o daughter in a 2 story home with B/B on 2nd floor and 1/2 bath on 1st, 2 steps to enter. No DME or in-home services. 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
Pharmacy is [facility] on [address] in [place] and PCP is Dr. Yaima Ziegler. Anticipate no needs at discharge.
--- NOTE | 2023-09-25 14:28 | CM ---
Patient has been medically cleared for discharge to home with no additional skilled services. Patient arranged for transport home.
== END 2023-09-25 13:30 | disposition home or self-care (01) | DRG 386 ==
LOC: 2 SOUTH 06:45
PROVIDERS: Emergency Medicine; ADMITTING PHYSICIAN Hospitalist; ATTENDING PHYSICIAN Family Medicine; CONSULT PHYSICIAN Internal Medicine; EMERGENCY PHYSICIAN Emergency Medicine; FAMILY PHYSICIAN Family Medicine
DX: K50.90 Crohn's disease, unspecified, without complications (principal); K56.690 Other partial intestinal obstruction; D50.9 Iron deficiency anemia, unspecified; F32.A Depression, unspecified; F41.9 Anxiety disorder, unspecified; K80.20 Calculus of gallbladder without cholecystitis without obstruction; D25.9 Leiomyoma of uterus, unspecified; N83.202 Unspecified ovarian cyst, left side; E53.8 Deficiency of other specified B group vitamins; E87.6 Hypokalemia; Z79.620 Long term (current) use of immunosuppressive biologic
CPT/HCPCS: 74177; 80048; 80053; 82728; 83605; 83690; 83735; 84703; 85025; 85027; 85652; 86140; 96374; 96375; 96376; 99285; J2916; Q9967

== ENCOUNTER 2023-10-13 14:22 | Outpatient (RCR) | payer BC, SELFPAY ==
[2023-10-07 11:00] VITALS: BP 129/84
[2023-10-07] MEDS: VENOFER 110 MG IV (11:22)
[2023-10-07 12:35] VITALS: BP 110/79
[2023-10-07 12:37] VITALS: BP 110/79
[2023-10-13] MEDS: VENOFER 110 MG IV (14:51)
[2023-10-13 14:52] LABS: % Immature Granulocytes 0.4 % (0-0.5); % Lymphocytes 3.7 % (20.5-51.1); % Monocytes 1.9 % (1.7-9.3); Absolute Immature Granulocytes 0.1 10^3/uL (0-0.05); Absolute Lymphocytes 0.5 10^3/uL (1.2-3.4); Absolute Monocytes 0.3 10^3/uL (0.1-0.6); Absolute Neutrophils 12.2 10^3/uL (1.4-6.5); Hematocrit 34.1 % (37.0-47.0); Hemoglobin 10.9 g/dL (12.0-16.0); Mean Corpuscular Hgb 24.3 pg (27.0-31.0); Mean Corpuscular Volume 76.1 fL (81.0-99.0); Mean Platelet Volume 10.4 fL (7.4-10.4); Platelet Count 275 10^3/uL (130-400); Red Blood Cell Count 4.48 10^6/uL (4.20-5.40); Red Cell Dist. Width 16.9 % (11.5-14.5); White Blood Cell Count 12.9 10^3/uL (4.8-10.8)
[2023-10-13 15:11] VITALS: BP 145/89
[2023-10-13 15:44] LABS: Iron 59 ug/dl (37-170)
[2023-10-13 15:50] VITALS: BP 116/76
[2023-10-13 15:53] LABS: Percent Saturation 17 % (20-50); Total Iron Binding Capacity 333 ug/dl (265-497)
== END 2023-10-13 23:59 | disposition home or self-care (01) ==
LOC: OID 14:22
PROVIDERS: ATTENDING PHYSICIAN Internal Medicine Gastroenterology; FAMILY PHYSICIAN Family Medicine
DX: D50.9 Iron deficiency anemia, unspecified (principal); K50.012 Crohn's disease of small intestine with intestinal obstruction; R74.8 Abnormal levels of other serum enzymes
CPT/HCPCS: 36415; 82728; 83540; 83550; 85025; 96365; J1756

== ENCOUNTER → 2023-10-27 16:19 | Outpatient (REF) | payer BC, SELFPAY | LOC: HWWDC 16:19 | PROVIDERS: ATTENDING PHYSICIAN Family Medicine; REFERRING PHYSICIAN Obstetrics & Gynecology | DX: Z12.31 Encounter for screening mammogram for malignant neoplasm of breast (principal) | CPT/HCPCS: 77063; 77067 ==

== ENCOUNTER 2023-11-03 13:59 | Outpatient (RCR) | payer BC, SELFPAY ==
[2023-10-20 14:42] VITALS: BP 134/88
[2023-10-20] MEDS: VENOFER 110 MG IV (14:47)
[2023-10-20] MEDS: NSS 250 IV (14:47)
[2023-10-20 15:59] VITALS: BP 112/68
[2023-10-26 11:02] VITALS: BP 124/86
[2023-10-26] MEDS: VENOFER 110 MG IV (11:12)
[2023-10-26] MEDS: NSS 250 IV (11:12)
[2023-11-03 14:20] VITALS: BP 105/77
[2023-11-03] MEDS: VENOFER 110 MG IV (14:29)
[2023-11-03] MEDS: NSS 250 IV (14:30)
[2023-11-03 15:52] VITALS: BP 108/75
== END 2023-11-04 08:58 | disposition home or self-care (01) ==
LOC: OID 13:59
PROVIDERS: ATTENDING PHYSICIAN Internal Medicine Gastroenterology; FAMILY PHYSICIAN Family Medicine
DX: D50.9 Iron deficiency anemia, unspecified (principal); K50.112 Crohn's disease of large intestine with intestinal obstruction; K50.012 Crohn's disease of small intestine with intestinal obstruction; R74.8 Abnormal levels of other serum enzymes
CPT/HCPCS: 96365; J1756

== ENCOUNTER → 2023-11-21 08:01 | Outpatient (REF) | payer BC, SELFPAY ==
[2023-11-21 09:11] LABS: % Basophils 0.5 % (0-2); % Eosinophils 1.3 % (0-6); % Immature Granulocytes 0.4 % (0-0.5); % Lymphocytes 18.3 % (20.5-51.1); % Monocytes 9.3 % (1.7-9.3); % Neutrophils 70.2 % (42.2-75.2); Absolute Eosinophils 0.1 10^3/uL (0-0.7); Absolute Monocytes 0.5 10^3/uL (0.1-0.6); Absolute Neutrophils 3.8 10^3/uL (1.4-6.5); Hematocrit 40.9 % (37.0-47.0); Hemoglobin 13.7 g/dL (12.0-16.0); Mean Corp Hgb Conc. 33.5 g/dL (33.0-37.0); Mean Corpuscular Hgb 27.2 pg (27.0-31.0); Mean Corpuscular Volume 81.3 fL (81.0-99.0); Mean Platelet Volume 11.4 fL (7.4-10.4); Nucleated Red Blood Cells % 0 %; Platelet Count 272 10^3/uL (130-400); Red Blood Cell Count 5.03 10^6/uL (4.20-5.40); Red Cell Dist. Width 20.7 % (11.5-14.5); White Blood Cell Count 5.5 10^3/uL (4.8-10.8)
[2023-11-21 09:41] LABS: ALT (SGPT) 32 U/L (0-35); AST (SGOT) 26 U/L (14-36); Albumin 4.1 g/dl (3.5-5.0); Alkaline Phosphatase 65 U/L (38-126); Blood Urea Nitrogen 10 mg/dl (7-17); C-Reactive Protein < 5.00 mg/L (0.0-10.00); Calcium 8.9 mg/dl (8.4-10.2); Carbon Dioxide 25 mmol/L (22-30); Chloride 105 mmol/L (98-107); Glucose 89 mg/dl (70-99); HDL Cholesterol 86 mg/dl; LDL Cholesterol, Calculated 90 mg/dl; Potassium 4.2 mmol/L (3.5-5.1); Sodium 139 mmol/L (135-145); Total Bilirubin 0.4 mg/dl (0.2-1.3); Total Cholesterol 195 mg/dl (50-199); Total Protein 6.8 g/dl (6.3-8.2); Triglyceride 98 mg/dl (10-149); Very Low Density Lipoprotein 19 mg/dl (0-30); eGFR > 60.00
[2023-11-21 09:50] LABS: Total Iron Binding Capacity 309 ug/dl (265-497)
[2023-11-21 10:30] LABS: Vitamin B12 514 pg/ml (239-931)
[2023-11-21 10:47] LABS: Erythrocyte Sed Rate 15 mm/hour (0-20)
[2023-11-21 10:54] LABS: TSH 1.49 uIU/ml (0.47-4.68)
[2023-11-24 00:35] LABS: Hepatitis B Surface Antigen Negative (Negative)
[2023-11-24 00:51] LABS: Hepatitis B Core Ab, Total Negative (Negative); Hepatitis B Surface Antibody Positive
[2023-11-24 01:46] LABS: Vitamin D 1,25 Dihydroxy 45.3 pg/mL (19.9-79.3)
== END ==
LOC: REG 08:01
PROVIDERS: ATTENDING PHYSICIAN Internal Medicine Gastroenterology; FAMILY PHYSICIAN Family Medicine
DX: K50.012 Crohn's disease of small intestine with intestinal obstruction (principal); K50.90 Crohn's disease, unspecified, without complications; Z00.00 Encounter for general adult medical examination without abnormal findings
CPT/HCPCS: 36415; 80053; 80061; 82607; 82652; 82728; 83550; 84443; 85025; 85652; 86140; 86704; 86706; 87340

== ENCOUNTER 2023-12-10 06:12 | Inpatient (IN) | payer BC, SELFPAY ==
[2023-12-01 08:24] VITALS: BMI 21.8
[2023-12-01 10:02] LABS: Hematocrit 39.8 % (37.0-47.0); Hemoglobin 13.8 g/dL (12.0-16.0); Mean Corp Hgb Conc. 34.7 g/dL (33.0-37.0); Mean Corpuscular Hgb 27.8 pg (27.0-31.0); Mean Corpuscular Volume 80.1 fL (81.0-99.0); Red Blood Cell Count 4.97 10^6/uL (4.20-5.40); Red Cell Dist. Width 20.4 % (11.5-14.5)
[2023-12-01 10:09] LABS: INR 0.94; PT 12.4 Sec (11.4-14.6)
[2023-12-01 10:10] LABS: APTT 39.6 Sec (23.4-35.0)
[2023-12-01 10:18] LABS: ALT (SGPT) 39 U/L (0-35); AST (SGOT) 35 U/L (14-36); Alkaline Phosphatase 70 U/L (38-126); Blood Urea Nitrogen 13 mg/dl (7-17); Calcium 8.9 mg/dl (8.4-10.2); Carbon Dioxide 20 mmol/L (22-30); Chloride 107 mmol/L (98-107); Estimated Creatinine Clearance 82 ml/min; Glucose 87 mg/dl (70-99); Potassium 4.1 mmol/L (3.5-5.1); Sodium 138 mmol/L (135-145); Total Bilirubin 0.6 mg/dl (0.2-1.3); Total Protein 6.8 g/dl (6.3-8.2); eGFR > 60.00
[2023-12-01 11:43] LABS: Mean Platelet Volume 12.5 fL (7.4-10.4); Platelet Count 205 10^3/uL (130-400)
[2023-12-10] VITALS (7 sets, daily range): BP systolic 106–165; BP diastolic 59–79; BMI 21.8
[2023-12-10 06:33] LABS: HCG, Urine Qualitative Screen Negative
[2023-12-10] MEDS: NORMOSOL-R 1000 IV (06:41)
[2023-12-10] MEDS: ENTEREG 12 MG PO (06:46)
[2023-12-10] MEDS: HEPARIN 5000 UNITS SC (06:46)
[2023-12-10] MEDS: NEURONTIN 600 MG PO (06:46)
[2023-12-10] MEDS: TYLENOL 1000 MG PO (06:46)
--- NOTE | 2023-12-10 13:16 | W.IMMPOSTOP ---
Addendum entered and electronically signed by Cortez Shepherd MD 12/10/23 13:44:
Patient's family updated in waiting area.
Original Note:
Surgical Immed Post Op Note
-
Primary Surgeon: Fernando Shepherd MD
Assisting Surgeon: JLUIS Arreguin; JEMAL Oliveira
Pre-op Diagnosis: stricturing ileal Crohn's
Post-op Diagnosis: same
Procedure Performed: 1) robotic ileocolectomy 2) extensive lysis of adhesions
Anesthesia Type: general plus local
Specimen / Cultures: ileocolectomy to include prior ileocolic anastomosis and 40 cm of ileum
Estimated Blood Loss: 50 cc
Complications: no immediate
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
Whitehead, ureteral stents and ureteral ICG by Dr. Chung of urology. One stent removed at end of case.
Will send to med surg.
[2023-12-10] MEDS: DILAUDID 0.5 MG IV ×2 (14:17→18:28)
[2023-12-10] MEDS: ZOFRAN 4 MG IV ×2 (14:33→18:33)
[2023-12-10] MEDS: DEMEROL 12.5 MG IV (14:36)
[2023-12-10 15:09] LABS: % Basophils 0.1 % (0-2); % Immature Granulocytes 0.3 % (0-0.5); % Lymphocytes 3.9 % (20.5-51.1); % Monocytes 2.4 % (1.7-9.3); % Neutrophils 93.3 % (42.2-75.2); Absolute Lymphocytes 0.4 10^3/uL (1.2-3.4); Absolute Monocytes 0.2 10^3/uL (0.1-0.6); Hematocrit 35.4 % (37.0-47.0); Hemoglobin 12.6 g/dL (12.0-16.0); Mean Corp Hgb Conc. 35.6 g/dL (33.0-37.0); Mean Corpuscular Hgb 28.5 pg (27.0-31.0); Mean Corpuscular Volume 80.1 fL (81.0-99.0); Mean Platelet Volume 10.4 fL (7.4-10.4); Nucleated Red Blood Cells % 0 %; Platelet Count 236 10^3/uL (130-400); Red Blood Cell Count 4.42 10^6/uL (4.20-5.40); Red Cell Dist. Width 17.7 % (11.5-14.5); White Blood Cell Count 9.6 10^3/uL (4.8-10.8)
[2023-12-10 15:33] LABS: Blood Urea Nitrogen 16 mg/dl (7-17); Calcium 6.6 mg/dl (8.4-10.2); Carbon Dioxide 16 mmol/L (22-30); Chloride 105 mmol/L (98-107); Estimated Creatinine Clearance 64 ml/min; Glucose 145 mg/dl (70-99); Magnesium 3.4 mg/dl (1.6-2.3); Potassium 3.9 mmol/L (3.5-5.1); Sodium 136 mmol/L (135-145); eGFR > 60.00
[2023-12-10] MEDS: TORADOL 15 MG IV ×2 (15:39→21:56)
--- NOTE | 2023-12-10 18:05 | PTCARENOTE ---
Pt arrived to [facility] from PACU s/p Dell ileocolectomy, and ureteral stent placement. 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 Pt states mild pain at this time. Oriented to call
doyle and room, bed locked and in lowest position, call doyle within reach.
[2023-12-10] MEDS: NORMOSOL-R IV (18:19)
[2023-12-10] MEDS: CALCIUM GLUCONATE 100 IV (18:24)
[2023-12-10] MEDS: TYLENOL PO ×2 (18:35→23:15)
[2023-12-10] MEDS: COMPAZINE 5 MG IV (20:47)
[2023-12-11] MEDS: NORMOSOL-R 1000 IV ×2 (01:07→09:34)
[2023-12-11] MEDS: DILAUDID 0.5 MG IV ×3 (02:59→18:37)
[2023-12-11 03:05] VITALS: BP 106/59
[2023-12-11] MEDS: TORADOL 15 MG IV ×4 (04:47→22:02)
[2023-12-11] MEDS: TYLENOL PO (05:24)
[2023-12-11 05:52] LABS: % Immature Granulocytes 0.4 % (0-0.5); % Lymphocytes 10.6 % (20.5-51.1); % Monocytes 9.7 % (1.7-9.3); % Neutrophils 79.3 % (42.2-75.2); Absolute Lymphocytes 0.9 10^3/uL (1.2-3.4); Absolute Monocytes 0.8 10^3/uL (0.1-0.6); Absolute Neutrophils 6.6 10^3/uL (1.4-6.5); Hematocrit 32.2 % (37.0-47.0); Mean Corp Hgb Conc. 34.2 g/dL (33.0-37.0); Mean Corpuscular Hgb 28.4 pg (27.0-31.0); Nucleated Red Blood Cells % 0 %; Platelet Count 213 10^3/uL (130-400); Red Blood Cell Count 3.88 10^6/uL (4.20-5.40); Red Cell Dist. Width 17.7 % (11.5-14.5); White Blood Cell Count 8.4 10^3/uL (4.8-10.8)
[2023-12-11 06:42] LABS: Blood Urea Nitrogen 12 mg/dl (7-17); Calcium 6.4 mg/dl (8.4-10.2); Carbon Dioxide 19 mmol/L (22-30); Chloride 108 mmol/L (98-107); Estimated Creatinine Clearance 96 ml/min; Glucose 98 mg/dl (70-99); Magnesium 2.7 mg/dl (1.6-2.3); Potassium 4.5 mmol/L (3.5-5.1); Sodium 134 mmol/L (135-145); eGFR > 60.00
[2023-12-11] MEDS: CALCIUM GLUCONATE 100 IV (07:50)
[2023-12-11] MEDS: WELLBUTRIN XL (24 hour extended release) 150 MG PO (07:52)
[2023-12-11] MEDS: NSS (PRESERVATIVE FREE) 10 ML IV (07:52)
[2023-12-11] MEDS: PROTONIX IV 40 MG IV (07:52)
[2023-12-11] MEDS: ENTEREG 12 MG PO ×2 (07:52→20:47)
[2023-12-11 08:00] VITALS: BP 153/75
--- NOTE | 2023-12-11 10:55 | CM ---
Admitted for robotic ileocolectomy and extensive lysis of adhesions. POD #1. Patient was recently discharged from in September 2023. Reviewed previous assessment with patient and confirmed all information has not changed and is accurate.
Patient lives with her and 14 y/o daughter in a 2 story home with B/B on 2nd floor and 1/2 bath on 1st, 2 steps to enter, no DME or in-home services. 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 Pharmacy is [facility] on [address] in [place]
and PCP is Dr. Yaima Ziegler. Anticipate no needs at discharge.
--- NOTE | 2023-12-11 11:57 | W.PN.CRS1 ---
Today's Communication / Plan
-
clears
lovenox
d/c esparza
stent removed
Assessment/Plan
-
POD#1 1) robotic ileocolectomy 2) extensive lysis of adhesions
1. Vitals and labs normal.
2. Advance to clears. Okay to advance to fulls later today if tolerates.
3. D/C IVFs when tolerating clears.
4. OOB as tolerated.
5. Stent #2 removed at bedside. D/C esparza.
6. Pain control: Tylenol/Toradol standing, Dilaudid IV PRN.
7. OR pathology pending.
8. Lovenox for DVT prophylaxis. TEDS/SCDS in place.
9. Ca 6.4, hypocalcemia. Calcium gluconate IV given this AM.
Subjective Data
Procedure
12/10/23- 1) robotic ileocolectomy 2) extensive lysis of adhesions
Subjective Data
Date of Service: December 11, 2023
Patient states she was nauseous last night but it resolved. She has some pain in her RUQ. She denies vomiting.
Objective Data
-
Vital Signs
Temp Pulse Resp BP Pulse Ox
97.9 F 95 17 153/75 96
12/11/23 08:00 12/11/23 08:00 12/11/23 08:00 12/11/23 08:00 12/11/23 08:00
Intake & Output
12/10/23 12/11/23 12/12/23
06:59 06:59 06:59
Intake Total 800 / 800
Output Total 1376 / 1376
Balance -576 / -576
Intake:
IV fluids (Total) 800 / 800
normosol 800 / 800
Output:
Urine, Esparza 1376 / 1376
Lab Results
12/11/23 05:13
12/11/23 05:13
Physical Exam
-
General: No Acute Distress and AOx3
Abdomen: Soft, Non Distended and Tender (around incisions)
Skin: Warm and Dry
Incision: Clear, Dry, Intact
--- NOTE | 2023-12-11 12:05 | PN.CDI ---
CDI
- -
CDI:
Physician Documentation Request
Admit Date: 12/10/23 06:12
Dear Colorectal,
Please review the following and provide your response in the progress notes.
Clinical Indicators:
- 12/09 & 12/10 1 gram IV calcium gluconate given
Laboratory Tests
12/01/23 12/10/23 12/11/23
08:21 15:00 05:13
Calcium 8.9 6.6 L* 6.4 L*
Please provide a diagnosis for the above lab values that were monitored and treatment rendered:
Hypocalcemia
Clinically insignificant abnormal lab value
Other
Use of terms such as suspected, likely, concern for, or probable (associated with a specific diagnosis that is being evaluated, monitored, or treated as if it exists) are acceptable and can be coded in the inpatient setting, when documented at the
time of discharge.
Thank you,
Neli Bowser RN
CDI Specialist
Please use your independent medical judgment in providing your response.
[2023-12-11] MEDS: TYLENOL 1000 MG PO ×2 (12:50→17:43)
[2023-12-11] MEDS: DILAUDID 0.25 MG IV (14:37)
[2023-12-11 16:30] VITALS: BP 135/78
[2023-12-11] MEDS: LOVENOX 40 MG SC (17:43)
[2023-12-11] MEDS: BENADRYL 25 MG IV (22:03)
[2023-12-11 23:33] VITALS: BP 122/76
[2023-12-12] MEDS: NORMOSOL-R 1000 IV (00:26)
[2023-12-12] MEDS: TYLENOL PO ×2 (00:45→05:42)
[2023-12-12] MEDS: DILAUDID 0.5 MG IV (03:14)
[2023-12-12] MEDS: TORADOL 15 MG IV ×4 (04:03→21:29)
[2023-12-12 06:15] LABS: % Basophils 0.4 % (0-2); % Immature Granulocytes 0.4 % (0-0.5); % Lymphocytes 19.9 % (20.5-51.1); % Monocytes 8.1 % (1.7-9.3); % Neutrophils 70.2 % (42.2-75.2); Absolute Eosinophils 0.1 10^3/uL (0-0.7); Absolute Monocytes 0.4 10^3/uL (0.1-0.6); Absolute Neutrophils 3.6 10^3/uL (1.4-6.5); Hemoglobin 10.1 g/dL (12.0-16.0); Mean Corp Hgb Conc. 32.6 g/dL (33.0-37.0); Mean Corpuscular Hgb 27.8 pg (27.0-31.0); Mean Corpuscular Volume 85.4 fL (81.0-99.0); Mean Platelet Volume 10.7 fL (7.4-10.4); Nucleated Red Blood Cells % 0 %; Platelet Count 185 10^3/uL (130-400); Red Blood Cell Count 3.63 10^6/uL (4.20-5.40); Red Cell Dist. Width 18.2 % (11.5-14.5); White Blood Cell Count 5.2 10^3/uL (4.8-10.8)
[2023-12-12 06:38] LABS: Blood Urea Nitrogen 8 mg/dl (7-17); Calcium 7.2 mg/dl (8.4-10.2); Carbon Dioxide 24 mmol/L (22-30); Chloride 107 mmol/L (98-107); Estimated Creatinine Clearance 96 ml/min; Glucose 91 mg/dl (70-99); Potassium 4.1 mmol/L (3.5-5.1); Sodium 136 mmol/L (135-145); eGFR > 60.00
[2023-12-12 07:48] VITALS: BP 153/83
[2023-12-12] MEDS: PROTONIX IV 40 MG IV (08:58)
[2023-12-12] MEDS: NSS (PRESERVATIVE FREE) 10 ML IV (08:58)
[2023-12-12] MEDS: TYLENOL 1000 MG PO ×2 (09:02→16:16)
[2023-12-12] MEDS: ENTEREG 12 MG PO (09:03)
[2023-12-12] MEDS: WELLBUTRIN XL (24 hour extended release) 150 MG PO (09:03)
--- NOTE | 2023-12-12 10:13 | W.PN.CRS1 ---
Today's Communication / Plan
-
Advance diet as tolerated
Assessment/Plan
-
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
POD#2 1) robotic ileocolectomy 2) extensive lysis of adhesions
AFVSS
Labs stable. Mild acute anemia secondary to intraop losses (expected) and hemodilution. No evidence of active bleeding
Hypocalcemia improved
Voiding after removal of esparza
+BM's/flatus and tolerating diet. Still with low PO intake.
--Full liquid diet this am, advance to LRD as tolerated
--Continue off IVF
--OOb/Ambulate
--Pain control: Tylenol/Toradol standing, oxycodone, Dilaudid IV PRN.
--OR pathology pending.
--Lovenox for DVT prophylaxis. TEDS/SCDS in place.
anticipate d/c tomorrow if continues to progress
Subjective Data
Procedure
12/10/23- 1) robotic ileocolectomy 2) extensive lysis of adhesions
Subjective Data
Date of Service: December 12, 2023
Patient seen and examined at bedside with Dr. Shepherd. Denies n/v. Tolerating diet with slow advancement. Pain better today. Has been OOB/ambulating. Passing some small loose stools/flatus
Objective Data
-
Vital Signs
Temp Pulse Resp BP Pulse Ox
98.4 F 72 18 153/83 94
12/12/23 07:48 12/12/23 07:48 12/12/23 07:48 12/12/23 07:48 12/12/23 09:17
Intake & Output
12/11/23 12/12/23 12/13/23
06:59 06:59 06:59
Intake Total 800 / 800 1260 / 1260
Output Total 1376 / 1376
Balance -576 / -576 1260 / 1260
Intake:
Oral fluids 560 / 560
IV fluids (Total) 800 / 800 700 / 700
normosol 800 / 800
Output:
Urine, Esparza 137 / 1376
Other:
Number of approximated MODERATE 2
amounts of urine
Lab Results
12/12/23 05:28
12/12/23 05:28
Physical Exam
-
General: No Acute Distress and AOx3
Abdomen: Soft, Non Distended and Tender (around incisions)
Skin: Warm and Dry
Incision: Clear, Dry, Intact
[2023-12-12] MEDS: ROXICODONE 5 MG PO ×3 (12:17→20:18)
[2023-12-12] MEDS: ZOFRAN 4 MG IV (12:18)
[2023-12-12 15:34] VITALS: BP 131/78
[2023-12-12] MEDS: LOVENOX 40 MG SC (16:18)
[2023-12-12] MEDS: ENTEREG PO (19:56)
[2023-12-12] MEDS: COMPAZINE 5 MG IV (20:21)
[2023-12-12] MEDS: BENADRYL 25 MG IV (22:48)
[2023-12-12 23:10] VITALS: BP 139/85
[2023-12-13] MEDS: TYLENOL PO (01:12)
[2023-12-13] MEDS: TORADOL 15 MG IV ×2 (04:51→09:07)
[2023-12-13] MEDS: TYLENOL 1000 MG PO (05:00)
[2023-12-13] MEDS: ZOFRAN 4 MG IV (05:04)
[2023-12-13] MEDS: ROXICODONE 5 MG PO ×2 (05:05→09:08)
[2023-12-13 06:00] VITALS: BMI 21.3
[2023-12-13 07:35] VITALS: BP 148/85
[2023-12-13] MEDS: PROTONIX IV 40 MG IV (09:06)
[2023-12-13] MEDS: ENTEREG PO (09:06)
[2023-12-13] MEDS: NSS (PRESERVATIVE FREE) 10 ML IV (09:07)
[2023-12-13] MEDS: WELLBUTRIN XL (24 hour extended release) 150 MG PO (09:08)
--- NOTE | 2023-12-13 10:07 | W.PN.CRS1 ---
Addendum entered and electronically signed by Cortez Shepherd MD 12/15/23 11:36:
On note patient has: Acute blood loss anemia and baseline chronic anemia.
Original Note:
Today's Communication / Plan
-
dispo planning
Assessment/Plan
-
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
POD#3 1) robotic ileocolectomy 2) extensive lysis of adhesions
AFVSS
+BM's/flatus and tolerating diet
--Full liquid diet this am, advance to LRD as tolerated
--OOb/Ambulate
--Pain control: Tylenol/Toradol standing, oxycodone prn
--OR pathology pending.
--Lovenox for DVT prophylaxis. TEDS/SCDS in place.
discharge to home
Subjective Data
Procedure
12/10/23- 1) robotic ileocolectomy 2) extensive lysis of adhesions
Subjective Data
Date of Service: December 13, 2023
Patient seen and examined at bedside with Dr. Shepherd. Denies n/v. Diarrhea slowing down. Pain well controlled and improving. Has been ambulating halls. Taking zofran with oxycodone to prevent nausea, but no nausea with meds
Objective Data
-
Vital Signs
Temp Pulse Resp BP Pulse Ox
97.8 F 69 17 148/85 97
12/13/23 07:35 12/13/23 07:35 12/13/23 07:35 12/13/23 07:35 12/13/23 07:35
Intake & Output
12/12/23 12/13/23 12/14/23
06:59 06:59 06:59
Intake Total 1260 / 1260 720 / 720
Balance 1260 / 1260 720 / 720
Intake:
Oral fluids 560 / 560 720 / 720
IV fluids (Total) 700 / 700
Other:
Number of approximated MODERATE 2 3
amounts of urine
Number of unmeasured liquid
stools
Rectum 4
Lab Results
12/12/23 05:28
12/12/23 05:28
Physical Exam
-
General: No Acute Distress and AOx3
Abdomen: Soft, Non Distended and Tender (around incisions)
Skin: Warm and Dry
Incision: Clear, Dry, Intact
--- NOTE | 2023-12-13 15:18 | W.DCSUMMARY ---
Discharge Summary
Discharge Data
Date of Admission: 12/10/23
Date of Discharge: 12/13/23
-
Pending Results: No
Hospital Course
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 Diet was able to be advanced
and well tolerated post operatively with good control of pain with oral pain regimen. Humira was held upon discharge with plan to resume in the coming weeks after surgical recovery. Outpatient follow up planning in the coming weeks.
Discharge Plan
-
Patient Disposition: Home (Routine Discharge)
Discharge Diagnosis/Procedures: Robotic ileocolectomy
Condition: Good
Diet: Low Residue
Activity: No strenuous activity
Additional Activity: No lifting over 10lbs (gallon of milk)
Driving Restrictions: No driving for 1 week
Bathing Restrictions: OK to Shower
Wound Care: The glue over your incisions will flake off in 2-3 weeks. Avoid scrubbing or picking off
Instructions: Low Fiber Diet
Referrals:
Cortez Shepherd MD [Active] - in two weeks
Yaima Ziegler MD [Family Provider] -
Additional Discharge Medication Instructions: Tylenol or Ibuprofen as needed for pain. Maximum amount of Tylenol is 4,000mg in 24 hours. Maximum amount of Ibuprofen is 3,200mg in 24 hours.
Prescriptions:
New
oxycodone 5 mg tablet
5 mg PO Q4HPRN PRN (Reason: breakthrough/severe pain) Qty: 20 0RF
ondansetron 4 mg tablet,disintegrating
4 mg PO Q8HPRN PRN (Reason: nausea/vomiting) Qty: 15 0RF
Continued
ascorbic acid (vitamin C) [Vitamin C] 500 MG tablet
1,000 mg PO DAILY
cholecalciferol (vitamin D3) 1,000 UNITS tablet
1,000 units PO DAILY
cyanocobalamin (vitamin B-12) 1,000 MCG tablet
1,000 mcg PO DAILY
omeprazole 40 mg Capsule,Delayed Release(Dr/Ec)
40 mg PO DAILY
bupropion HCl [Wellbutrin XL] 150 mg Tablet Extended Release 24 Hr
150 mg PO DAILY
acetaminophen 500 mg Tablet
1,000 mg PO Q6H PRN (Reason: pain)
Held
Humira(CF) 40 mg/0.4 mL Syringe Kit
40 mg SC Q2W
Hold Instructions: Resume on 11/28/24. hold for minimum of 2 weeks. Will discuss resuming at follow up appointment
Rx Instructions:
Discontinued
metronidazole 500 mg Tablet
500 mg PO .[id number]
Patient Comments:
took at 1400, 1500, and 2200 on 12/09/23
Rx Instructions:
Pre op for surgery
neomycin 500 mg Tablet
1,000 mg PO .[id number]
Patient Comments:
took at 1400,1500, and 2200 on 12/09/23
Rx Instructions:
Pre op for surgery
Suflave 178.7-7.3-0.5 gram Recon Soln
240 ml PO DIRECTED
Rx Instructions:
DOSE #1: administer on EVENING BEFORE procedure; drink until gone
Discharge Orders:
Discharge Patient (As Directed); Ordered 12/13/23
Ordered By: Marion Hassan
Discharge Date and Time
Discharge Date/Time: 12/13/23 10:50
Print Language: FILIPINO
--- NOTE | 2023-12-14 10:13 | PN.CDI ---
CDI
- -
CDI:
Physician Documentation Request
Admit Date: 12/10/23 06:12
Dear Colorectal,
Please review the following and provide your response in the progress notes.
Clinical Indicators:
- 12/11 Colorectal note 'Mild acute anemia secondary to intraop losses (expected) and hemodilution'
- 12/09 Post op note EBL 50cc
Laboratory Tests
12/01/23 12/11/23 12/12/23
08:21 05:13 05:28
Hgb 13.8 11.0 L 10.1 L
Please clarify the appropriate diagnosis that supports the above lab abnormalities and additional evaluation, monitoring and/or treatment rendered:
Acute blood loss anemia and hemodilution
Acute blood loss anemia and baseline chronic anemia (please specify)
Other
Use of terms such as suspected, likely, concern for, or probable (associated with a specific diagnosis that is being evaluated, monitored, or treated as if it exists) are acceptable and can be coded in the inpatient setting, when documented at the
time of discharge.
Thank you,
Neli Bowser RN
CDI Specialist
Please use your independent medical judgment in providing your response.
== END 2023-12-13 10:50 | disposition home or self-care (01) | DRG 330 ==
LOC: 2 SOUTH 06:12
PROVIDERS: Physician Assistant; Specialist; ADMITTING PHYSICIAN Surgery; FAMILY PHYSICIAN Family Medicine
PROC: 0T788DZ Dilation of Bilateral Ureters with Intraluminal Device, Via Natural or Artificial Opening Endoscopic (ICD-10-PCS; 2023-12-10)
PROC: 8E0W8CZ Robotic Assisted Procedure of Trunk Region, Via Natural or Artificial Opening Endoscopic (ICD-10-PCS; 2023-12-10)
PROC: 3E0K8KZ Introduction of Other Diagnostic Substance into Genitourinary Tract, Via Natural or Artificial Opening Endoscopic (ICD-10-PCS; 2023-12-10)
PROC: 0DNU4ZZ Release Omentum, Percutaneous Endoscopic Approach (ICD-10-PCS; 2023-12-10)
PROC: 0DBK4ZZ Excision of Ascending Colon, Percutaneous Endoscopic Approach (ICD-10-PCS; 2023-12-10)
PROC: 0DTB4ZZ Resection of Ileum, Percutaneous Endoscopic Approach (ICD-10-PCS; 2023-12-10)
DX: K50.012 Crohn's disease of small intestine with intestinal obstruction (principal); D62 Acute posthemorrhagic anemia; N13.30 Unspecified hydronephrosis; E83.51 Hypocalcemia; L94.0 Localized scleroderma [morphea]; R11.0 Nausea; Z79.69 Long term (current) use of other immunomodulators and immunosuppressants; Z79.52 Long term (current) use of systemic steroids; Z83.3 Family history of diabetes mellitus; Z82.49 Family history of ischemic heart disease and other diseases of the circulatory system; Z80.3 Family history of malignant neoplasm of breast
CPT/HCPCS: 88307; 36415; 80048; 80053; 81025; 83036; 83735; 85025; 85027; 85610; 85730; 86850; 86900; 86901; J1335

== ENCOUNTER → 2024-01-28 10:06 | Outpatient (REF) | payer BC, SELFPAY ==
[2024-01-30 08:18] LABS: Quantiferon Mitogen minus NIL 2.66 IU/mL; Quantiferon TB Gold Plus Negative (Negative)
== END ==
LOC: REG 10:06
PROVIDERS: ATTENDING PHYSICIAN Internal Medicine Gastroenterology
DX: K50.012 Crohn's disease of small intestine with intestinal obstruction (principal); K50.90 Crohn's disease, unspecified, without complications
CPT/HCPCS: 36415; 86480

== ENCOUNTER → 2024-02-18 12:38 | Outpatient (REF) | payer BC, SELFPAY | LOC: RAD 12:38 | PROVIDERS: ATTENDING PHYSICIAN Nurse Practitioner Family | DX: M25.472 Effusion, left ankle (principal); M79.662 Pain in left lower leg | CPT/HCPCS: 93971 ==

== ENCOUNTER → 2024-03-07 06:24 | Day surgery (SDC) | payer BC, SELFPAY | LOC: GI 06:24 | PROVIDERS: ATTENDING PHYSICIAN Internal Medicine Gastroenterology | DX: K22.89 Other specified disease of esophagus (principal); K44.9 Diaphragmatic hernia without obstruction or gangrene; R13.10 Dysphagia, unspecified; R76.8 Other specified abnormal immunological findings in serum; K50.90 Crohn's disease, unspecified, without complications | CPT/HCPCS: 43239; 88305; 88342 ==

== ENCOUNTER → 2024-05-04 14:57 | Outpatient (REF) | payer BC, SELFPAY ==
[2024-05-04 17:09] LABS: Erythrocyte Sed Rate 26 mm/hour (0-20)
[2024-05-05 06:55] LABS: IgA 144 mg/dl (70-400); IgG 1031 mg/dl (700-1600)
[2024-05-05 07:38] LABS: IgM 565 mg/dl (40-230)
[2024-05-05 13:47] LABS: Rheumatoid Agglutinin Less Than 10 IU (<10 IU)
[2024-05-06 12:22] LABS: Lyme Antibody Screen, EIA Negative (Negative)
[2024-05-06 19:32] LABS: ANA, IgG Reflex to HEp-2 Detected (None Detected)
[2024-05-07 06:30] LABS: Endomysial IgA Antibody Titer <1:10 (<1:10)
== END ==
LOC: REG 14:57
PROVIDERS: ATTENDING PHYSICIAN Internal Medicine Gastroenterology; FAMILY PHYSICIAN Family Medicine
DX: R89.7 Abnormal histological findings in specimens from other organs, systems and tissues (principal); M25.50 Pain in unspecified joint
CPT/HCPCS: 36415; 82784; 83516; 85652; 86038; 86231; 86430; 86618

== ENCOUNTER → 2024-05-11 07:30 | Outpatient (REF) | payer BC, SELFPAY ==
[2024-05-11 08:52] LABS: % Basophils 0.2 % (0-2); % Eosinophils 1.1 % (0-6); % Immature Granulocytes 0.2 % (0-0.5); % Lymphocytes 19.3 % (20.5-51.1); % Monocytes 7.9 % (1.7-9.3); % Neutrophils 71.3 % (42.2-75.2); Absolute Eosinophils 0.1 10^3/uL (0-0.7); Absolute Lymphocytes 0.9 10^3/uL (1.2-3.4); Absolute Monocytes 0.4 10^3/uL (0.1-0.6); Absolute Neutrophils 3.3 10^3/uL (1.4-6.5); Hematocrit 40.7 % (37.0-47.0); Hemoglobin 13.7 g/dL (12.0-16.0); Mean Corp Hgb Conc. 33.7 g/dL (33.0-37.0); Mean Corpuscular Hgb 29.2 pg (27.0-31.0); Mean Corpuscular Volume 86.8 fL (81.0-99.0); Mean Platelet Volume 10.4 fL (7.4-10.4); Nucleated Red Blood Cells % 0 %; Platelet Count 246 10^3/uL (130-400); Red Blood Cell Count 4.69 10^6/uL (4.20-5.40); Red Cell Dist. Width 12.9 % (11.5-14.5); White Blood Cell Count 4.6 10^3/uL (4.8-10.8)
[2024-05-11 09:30] LABS: Erythrocyte Sed Rate 26 mm/hour (0-20)
[2024-05-11 10:10] LABS: ALT (SGPT) 33 U/L (0-35); AST (SGOT) 32 U/L (14-36); Albumin 4.3 g/dl (3.5-5.0); Alkaline Phosphatase 84 U/L (38-126); Blood Urea Nitrogen 14 mg/dl (7-17); Calcium 8.8 mg/dl (8.4-10.2); Carbon Dioxide 20 mmol/L (22-30); Chloride 105 mmol/L (98-107); Direct Bilirubin 0.2 mg/dl (0.0-0.4); Glucose 85 mg/dl (70-99); HDL Cholesterol 66 mg/dl; Iron 149 ug/dl (37-170); LDL Cholesterol, Calculated 55 mg/dl; Potassium 4.3 mmol/L (3.5-5.1); Sodium 140 mmol/L (135-145); Total Bilirubin 0.8 mg/dl (0.2-1.3); Total Cholesterol 151 mg/dl (50-199); Total Protein 7.2 g/dl (6.3-8.2); Triglyceride 153 mg/dl (10-149); Very Low Density Lipoprotein 30 mg/dl (0-30); eGFR > 60.00
[2024-05-11 10:19] LABS: Percent Saturation 36 % (20-50); Total Iron Binding Capacity 411 ug/dl (265-497)
[2024-05-11 10:32] LABS: Urine Albumin Negative (Neg - Trace); Urine Bilirubin Negative (Negative); Urine Character Clear (Clear); Urine Color Yellow; Urine Glucose Negative (Negative); Urine Ketone Negative (Negative); Urine Leukocyte Negative (Negative); Urine Nitrite Negative (Negative); Urine Occult Blood Negative (Negative); Urine Urobilinogen Negative (Neg - 1+)
[2024-05-11 10:44] LABS: Ferritin 92.9 ng/ml (6.24-137)
[2024-05-11 10:50] LABS: Urine Protein < 5 mg/dl
[2024-05-12 05:07] LABS: Complement C3 117 mg/dl (88-165)
[2024-05-12 18:10] LABS: HLA-B27 Negative (Negative)
[2024-05-12 19:41] LABS: Thyroid Peroxidase Ab (TPO) 0.5 IU/mL (0.0-9.0)
[2024-05-13 00:46] LABS: ds-DNA Ab, IgG Reflex To Titer 48 IU (0-24)
[2024-05-13 02:00] LABS: F-Actin Antibody IgG 5 Units (0-19); Mitochondrial M2 Ab, IgG 10.3 Units (0.0-24.9)
[2024-05-13 05:47] LABS: Histone Antibody, IgG 1.4 Units (0.0-0.9)
[2024-05-13 09:19] LABS: Smith/RNP (ENA), IgG 3 Units (0-19)
[2024-05-13 14:01] LABS: SSA 52 (Ro)(ENA) Ab, IgG 0 AU/mL (0-40); SSA 60 (Ro)(ENA) Ab, IgG 0 AU/mL (0-40); SSB (La)(ENA) Ab, IgG 1 AU/mL (0-40); Scleroderma Antibody (Scl-70) 29 AU/mL (0-40)
== END ==
LOC: REG 07:30
PROVIDERS: ATTENDING PHYSICIAN Family Medicine; OTHER PHYSICIAN Internal Medicine Gastroenterology
DX: K50.012 Crohn's disease of small intestine with intestinal obstruction (principal); M32.9 Systemic lupus erythematosus, unspecified; D50.0 Iron deficiency anemia secondary to blood loss (chronic)
CPT/HCPCS: 36415; 80053; 80061; 81003; 82248; 82570; 82728; 83516; 83540; 83550; 84156; 85025; 85610; 85613; 85652; 85730; 86015; 86140; 86160; 86225; 86235; 86376; 86381; 86812

== ENCOUNTER 2024-09-13 06:15 | Day surgery (SDC) | payer BC, SELFPAY | END 2024-09-13 11:14 | disposition home or self-care (01) | LOC: GI 06:15 | PROVIDERS: ATTENDING PHYSICIAN Internal Medicine Gastroenterology | DX: K50.00 Crohn's disease of small intestine without complications (principal); K64.0 First degree hemorrhoids | CPT/HCPCS: 45380; 88305 ==

== ENCOUNTER → 2024-10-05 14:08 | Outpatient (REF) | payer BC, SELFPAY | LOC: CPAP 14:08 | PROVIDERS: ATTENDING PHYSICIAN Nurse Practitioner Family | DX: Z01.419 Encounter for gynecological examination (general) (routine) without abnormal findings (principal) | CPT/HCPCS: 87624 ==

== ENCOUNTER → 2024-10-19 12:40 | Outpatient (REF) | payer BC, SELFPAY ==
[2024-10-19 16:53] LABS: Urine Albumin 1+ (Neg - Trace); Urine Bilirubin Negative (Negative); Urine Character Clear (Clear); Urine Color Yellow; Urine Glucose Negative (Negative); Urine Ketone Negative (Negative); Urine Leukocyte 1+ (Negative); Urine Nitrite Positive (Negative); Urine Occult Blood Negative (Negative); Urine Urobilinogen Negative (Neg - 1+)
[2024-10-19 16:55] LABS: Erythrocyte Sed Rate 13 mm/hour (0-20)
[2024-10-19 16:59] LABS: % Basophils 0.3 % (0-2); % Eosinophils 0.7 % (0-6); % Immature Granulocytes 0.5 % (0-0.5); % Lymphocytes 19.9 % (20.5-51.1); % Monocytes 8.8 % (1.7-9.3); % Neutrophils 69.8 % (42.2-75.2); Absolute Eosinophils 0.1 10^3/uL (0-0.7); Absolute Lymphocytes 1.5 10^3/uL (1.2-3.4); Absolute Monocytes 0.6 10^3/uL (0.1-0.6); Absolute Neutrophils 5.1 10^3/uL (1.4-6.5); Hemoglobin 14.2 g/dL (12.0-16.0); Mean Corp Hgb Conc. 35.5 g/dL (33.0-37.0); Mean Corpuscular Hgb 30.7 pg (27.0-31.0); Mean Corpuscular Volume 86.6 fL (81.0-99.0); Nucleated Red Blood Cells % 0 %; Red Blood Cell Count 4.62 10^6/uL (4.20-5.40); Red Cell Dist. Width 11.9 % (11.5-14.5); White Blood Cell Count 7.3 10^3/uL (4.8-10.8)
[2024-10-19 17:03] LABS: Urine Calcium Oxalate Crystals Present; Urine Red Blood Cell 0-2 /HPF (0-2); Urine Squamous Cell >30 /LPF (Few)
[2024-10-19 17:04] LABS: Urine Bacteria Many (Negative)
[2024-10-19 17:06] LABS: C-Reactive Protein < 5.00 mg/L (0.0-10.00)
[2024-10-19 17:13] LABS: ALT (SGPT) 60 U/L (0-35); AST (SGOT) 37 U/L (14-36); Alkaline Phosphatase 80 U/L (38-126); Blood Urea Nitrogen 14 mg/dl (7-17); Calcium 8.9 mg/dl (8.4-10.2); Carbon Dioxide 23 mmol/L (22-30); Chloride 104 mmol/L (98-107); Glucose 113 mg/dl (70-99); Potassium 4.1 mmol/L (3.5-5.1); Sodium 137 mmol/L (135-145); Total Bilirubin 0.8 mg/dl (0.2-1.3); Total Protein 6.8 g/dl (6.3-8.2); eGFR > 60.00
[2024-10-19 17:15] LABS: Urine Protein < 5 mg/dl
[2024-10-20 00:10] LABS: Complement C3 127 mg/dl (88-165)
[2024-10-22 04:46] LABS: ds-DNA Ab, IgG Reflex To Titer 10 IU (0-24)
== END ==
LOC: HWLAB 12:40
PROVIDERS: ATTENDING PHYSICIAN Internal Medicine; FAMILY PHYSICIAN Family Medicine; REFERRING PHYSICIAN Internal Medicine Gastroenterology
DX: M32.9 Systemic lupus erythematosus, unspecified (principal)
CPT/HCPCS: 36415; 80053; 81003; 81015; 82570; 83516; 84156; 85025; 85652; 86140; 86160; 86225

== ENCOUNTER → 2025-03-09 10:50 | Outpatient (REF) | payer BC, SELFPAY ==
[2025-03-09 16:23] LABS: Urine Character Clear (Clear)
== END ==
LOC: HWLAB 10:50
PROVIDERS: ATTENDING PHYSICIAN Internal Medicine; FAMILY PHYSICIAN Family Medicine
DX: K50.919 Crohn's disease, unspecified, with unspecified complications (principal); M32.9 Systemic lupus erythematosus, unspecified; Z00.00 Encounter for general adult medical examination without abnormal findings; Z79.899 Other long term (current) drug therapy
CPT/HCPCS: 81003; 82570; 84156

== ENCOUNTER → 2025-03-25 08:00 | Outpatient (REF) | payer BC, SELFPAY ==
[2025-03-25 09:09] LABS: Hematocrit 43.2 % (37.0-47.0); Hemoglobin 14.7 g/dL (12.0-16.0); Mean Corp Hgb Conc. 34.0 g/dL (33.0-37.0); Mean Corpuscular Volume 86.7 fL (81.0-99.0); Nucleated Red Blood Cells % 0 %; Red Cell Dist. Width 12.1 % (11.5-14.5)
[2025-03-25 09:32] LABS: ALT (SGPT) 53 U/L (0-35); AST (SGOT) 36 U/L (14-36); Albumin 4.4 g/dl (3.5-5.0); Alkaline Phosphatase 76 U/L (38-126); Blood Urea Nitrogen 10 mg/dl (7-17); Calcium 8.9 mg/dl (8.4-10.2); Carbon Dioxide 27 mmol/L (22-30); Chloride 102 mmol/L (98-107); Glucose 87 mg/dl (70-99); HDL Cholesterol 94 mg/dl; LDL Cholesterol, Calculated 59 mg/dl; Potassium 4.1 mmol/L (3.5-5.1); Sodium 136 mmol/L (135-145); Total Protein 7.4 g/dl (6.3-8.2); Very Low Density Lipoprotein 27 mg/dl (0-30); eGFR > 60.00
[2025-03-25 10:21] LABS: C-Reactive Protein < 5.00 mg/L (0.0-10.00)
[2025-03-25 10:51] LABS: TSH 0.94 uIU/ml (0.47-4.68)
[2025-03-25 11:10] LABS: Vitamin B12 420 pg/ml (239-931)
[2025-03-28 07:15] LABS: ds-DNA Ab, IgG Reflex To Titer 3 IU (0-24)
[2025-03-28 07:33] LABS: Beta-2-Glycoprotein I Ab. IgG <10 SGU (<=20); Beta-2-Glycoprotein I Ab. IgM 63 SMU (<=20)
== END ==
LOC: REG 08:00
PROVIDERS: ATTENDING PHYSICIAN Internal Medicine; FAMILY PHYSICIAN Family Medicine; REFERRING PHYSICIAN Internal Medicine Gastroenterology
DX: K50.919 Crohn's disease, unspecified, with unspecified complications (principal); M32.9 Systemic lupus erythematosus, unspecified; Z00.00 Encounter for general adult medical examination without abnormal findings; Z79.899 Other long term (current) drug therapy
CPT/HCPCS: 36415; 80053; 80061; 82607; 84443; 85025; 85610; 85613; 85652; 85730; 86038; 86140; 86146; 86147; 86160; 86225; 86235